=== PATIENT | male | born 1940 | race African-American/Black ===

== ENCOUNTER 2020-12-05 08:00 | Inpatient (IN) ==
[2020-12-05] MEDS ORDERED: DEXTROSE 50% 25 GM/50 ML VIAL IV PRN (11:34)
[2020-12-05] MEDS ORDERED: GLUCAGON 1 MG VIAL IM PRN (11:34)
[2020-12-05 12:27] LABS: Basophils % 0.4 % (0.0-0.8); Eosinophils # 0.2 10*3/uL (0.0-0.87); Eosinophils % 1.9 % (0.00-10.9); Hematocrit 47.4 VOL% (42.0-52.0); Hemoglobin 14.6 GM/DL (14.0-18.0); Immature Granulocytes % 0.4 %; Immature Granulocytes Absolute 0.04 #; Lymphocytes # 2.2 10*3/uL (1.4-4.0); Lymphocytes % 21.4 % (21.2-54.2); Mean Corpuscular HGB Conc 30.8 GM/DL (32-36); Mean Corpuscular Volume 86.2 FL (87-102); Mean Platelet Volume 11.5 FL (9.6-12.0); Monocytes % 6.7 % (1.7-12.7); Neutrophils % 69.2 % (38.7-73.9); Platelet Count 247 T/CUMM (130-400); Red Cell Distribution Width 15.6 % (9.3-17.3); White Blood Count 10.1 T/CUMM (4-12)
[2020-12-05] MEDS ORDERED: INFLUENZA VIRUS VACCINE 0.5 ML SYRINGE IM ONE (12:35)
[2020-12-05] MEDS ORDERED: PNEUMOCOCCAL VACCINE (13 VALENT) 0.5 ML SYRINGE IM ONE (12:36)
[2020-12-05] MEDS ORDERED: NITROGLYCERIN SL 0.4 MG TABLET SL PRN (12:41)
[2020-12-05] MEDS ORDERED: MORPHINE 2 MG/1 ML SYRINGE IV PRN (12:41)
[2020-12-05] MEDS ORDERED: CLORAZEPATE 3.75 MG TABLET PO PRN (12:41)
[2020-12-05] MEDS ORDERED: ALBUTEROL/IPRATROPIUM 3 ML NEB RESP TX PRN (12:45)
[2020-12-05 13:03] LABS: Albumin 3.9 G/DL (3.4-5.0); Bilirubin,Total 0.8 MG/DL (0.20-1.00); Calcium 9.4 MG/DL (8.5-10.1); Potassium 4.4 MMOL/L (3.5-5.1); Total Protein 8.8 G/DL (6.4-8.2)
[2020-12-05] MEDS ORDERED: DAPAGLIFLOZIN 10 MG TABLET PO SCH (13:30)
[2020-12-05 13:40] LABS: ABG Base Excess -0.4 MMOL/L (-2.5-2.5); ABG HCO3 23.9 MMOL/L (20-26); ABG Oxygen Saturation 93.6 % (95-100); ABG PCO2 38.3 MM HG (35-48); ABG PH 7.413 (7.35-7.45); ABG PO2 69.6 MM HG (80-95); ABG TCO2 25.1 MMOL/L (23-27); Allen Test Positive; Pt O2 Delivery Device Room Air
[2020-12-05] MEDS: SODIUM CHLORIDE 0.9% 1,000 ML IV SCH (14:00)
[2020-12-05] MEDS: INSULIN REGULAR 100 UNIT/ML SUBCUT SCH ×2 (16:07→20:22)
[2020-12-05] MEDS: CHLORHEXIDINE 4% SOLN 118 ML BOTTLE TOP SCH ×2 (16:08→20:21)
[2020-12-05 17:29] LABS: Microalbum Ur Quant Random 58.7 MG/L (0-20)
[2020-12-05] MEDS: PANTOPRAZOLE 40 MG TABLET PO SCH (20:22)
[2020-12-05] MEDS: CHLORHEXIDINE 0.12% ORAL RINSE 60 ML BOTTLE SWISH/SPIT SCH (20:22)
[2020-12-05] MEDS ORDERED: INSULIN GLARGINE 100 UNIT/ML SUBCUT SCH (21:00)
[2020-12-06] MEDS: CHLORHEXIDINE 4% SOLN 118 ML BOTTLE TOP SCH ×2 (04:01→11:17)
[2020-12-06] MEDS ORDERED: VANCOMYCIN INJ 1,000 MG in SODIUM CHLORIDE 0.9% 250 ML IV ONE (05:00)
[2020-12-06] MEDS ORDERED: VANCOMYCIN 500 MG VIAL ONE (05:03)
[2020-12-06] MEDS ORDERED: PAPAVERINE 60 MG/2 ML VIAL ONE (05:03)
[2020-12-06] MEDS ORDERED: VANCOMYCIN 1,000 MG VIAL ONE (05:03)
[2020-12-06] MEDS ORDERED: HEPARIN/NACL 0.9% 2 UNITS/ML 1,000 UNIT/500 ML BAG IV ONE (05:37)
[2020-12-06] MEDS ORDERED: SEVOFLURANE 1 UNIT/15 MINUTE INH ONE (05:40)
[2020-12-06] MEDS ORDERED: VECURONIUM 10 MG VIAL IV ONE ×3 (05:41→08:41)
[2020-12-06] MEDS ORDERED: CALCIUM CHLORIDE 1,000 MG/10 ML VIAL IV ONE ×3 (05:41→11:37)
[2020-12-06] MEDS ORDERED: SUFentanil 250 MCG/5 ML AMP ONE (05:41)
[2020-12-06] MEDS ORDERED: LIDOCAINE 2% 5 ML VIAL ONE ×2 (05:41→11:39)
[2020-12-06] MEDS ORDERED: ETOMIDATE 40 MG/20 ML VIAL IV ONE (05:41)
[2020-12-06] MEDS ORDERED: MIDAZOLAM 10 MG/2 ML VIAL ONE ×4 (05:41→08:42)
[2020-12-06] MEDS ORDERED: MINERAL OIL/PETROLATUM OPH OINT 3.5 GM TUBE ONE (05:42)
[2020-12-06] MEDS ORDERED: SODIUM CHLORIDE 0.9% 250 ML IV ONE (05:42)
[2020-12-06] MEDS ORDERED: AMINOCAPROIC ACID 5,000 MG/20 ML VIAL ONE (05:42)
[2020-12-06] MEDS ORDERED: PANTOPRAZOLE 40 MG TABLET PO ONE (06:00)
[2020-12-06] MEDS ORDERED: DIAZEPAM 5 MG TABLET PO ONE (06:00)
[2020-12-06 07:40] LABS: ABG Base Excess -1.5 MMOL/L (-2.5-2.5); ABG HCO3 24.8 MMOL/L (20-26); ABG Oxygen Saturation 99.5 % (95-100); ABG PH 7.331 (7.35-7.45); ABG PO2 378.7 MM HG (80-95); ABG TCO2 26.3 MMOL/L (23-27); Glucose Heart Surgery 248 MG/DL (74-106); Hemoglobin Heart Surgery 13.2 G/DL (14.0-18.0); Ionized Calcium Arterial 1.12 MMOL/L (1.21-1.46); PH Patient Temp Arterial 7.331; PO2 Patient Temp Arterial 378.7 MM HG; Patient Temperature 37 CELCIUS; Potassium Heart/CVR 4.1 MMOL/L (3.5-5.1); Sodium Heart/CVR 138 MMOL/L (135-145)
[2020-12-06 08:13] LABS: Bilirubin,Urine Negative (Negative); Blood, Urine Small mg/dL (Negative); Glucose,Urine (UA) 50 mg/dL (Negative); Ketones,Urine Negative (Negative); Mucus,Urine Occasional /LPF (Occasional); Nitrite,Urine Negative (Negative); Protein,Urine Negative; RBC,Urine 9 /HPF (0-4); Urine Appearance CLEAR (Clear); Urine Color Yellow (Yellow); Urine Specific Gravity 1.024 (1.001-1.035); Urine Urobilinogen < 2.0 EU/DL (0.2-1.0)
[2020-12-06 08:27] LABS: Hematocrit Heart Surgery 26.9 PERCENT (42-52); Hemoglobin Heart Surgery 8.7 G/DL (14.0-18.0); PCO2 Patient Temp Venous 46.2 MM HG; PH Patient Temp Venous 7.327; PO2 Patient Temp Venous 50.2 MM HG; Potassium Heart/CVR 4.4 MMOL/L (3.5-5.1); VBG Base Excess -1.8 MEQ/L (0-4); VBG HCO3 22.7 MEQ/L (24-28); VBG Oxygen Saturation 81.5 %; VBG PCO2 48.5 MMHG (41-51); VBG PH 7.313; VBG PO2 53.7 MMHG (17-40)
[2020-12-06] MEDS ORDERED: diphenhydrAMINE 50 MG/1 ML VIAL ONE (08:41)
[2020-12-06] MEDS ORDERED: AMIODARONE 150 MG/3 ML VIAL ONE (08:46)
[2020-12-06] MEDS ORDERED: SODIUM CHLORIDE 0.9% 200 ML IV ONE (08:47)
[2020-12-06 08:54] LABS: Hemoglobin Heart Surgery 9.4 G/DL (14.0-18.0); PCO2 Patient Temp Venous 33.4 MM HG; PH Patient Temp Venous 7.436; PO2 Patient Temp Venous 39.8 MM HG; Potassium Heart/CVR 3.7 MMOL/L (3.5-5.1); VBG Base Excess -1.2 MEQ/L (0-4); VBG HCO3 23.2 MEQ/L (24-28); VBG Oxygen Saturation 81.8 %; VBG PCO2 38.6 MMHG (41-51); VBG PH 7.393; VBG PO2 48.9 MMHG (17-40); VBG Total CO2 21.7 MMOL/L
[2020-12-06] MEDS ORDERED: ALBUMIN 5% 12.5 GM/250 ML VIAL IV ONE (08:56)
[2020-12-06] MEDS ORDERED: POTASSIUM CHLORIDE RIDER 20 MEQ/100 ML PREMIX IV ONE (08:57)
[2020-12-06] MEDS ORDERED: PHENYLEPHRINE DRIP 40 MG/250 ML PREMIX IV ONE (08:58)
[2020-12-06] MEDS ORDERED: FAMOTIDINE 20 MG/2 ML VIAL IV ONE (09:11)
[2020-12-06 09:26] LABS: Hematocrit Heart Surgery 30.1 PERCENT (42-52); Hemoglobin Heart Surgery 9.7 G/DL (14.0-18.0); PCO2 Patient Temp Venous 36.7 MM HG; PH Patient Temp Venous 7.391; PO2 Patient Temp Venous 45.6 MM HG; Potassium Heart/CVR 4.5 MMOL/L (3.5-5.1); VBG Base Excess -2.3 MEQ/L (0-4); VBG HCO3 22.2 MEQ/L (24-28); VBG Oxygen Saturation 76.6 %; VBG PCO2 36.7 MMHG (41-51); VBG PH 7.391; VBG PO2 45.6 MMHG (17-40); VBG Total CO2 20.4 MMOL/L
[2020-12-06 09:57] LABS: Hemoglobin Heart Surgery 10.7 G/DL (14.0-18.0); PCO2 Patient Temp Venous 34.7 MM HG; PH Patient Temp Venous 7.431; PO2 Patient Temp Venous 41.3 MM HG; Potassium Heart/CVR 4.6 MMOL/L (3.5-5.1); VBG Base Excess -1.3 MEQ/L (0-4); VBG HCO3 22.6 MEQ/L (24-28); VBG Oxygen Saturation 77.8 %; VBG PCO2 34.7 MMHG (41-51); VBG PH 7.431; VBG PO2 41.3 MMHG (17-40); VBG Total CO2 23.6 MMOL/L
[2020-12-06] MEDS ORDERED: THROMBIN TOPICAL (RECOMBINANT) 5,000 UNIT VIAL TOP ONE (10:07)
[2020-12-06] MEDS ORDERED: EPINEPHrine 1 MG/ML VIAL ONE (10:32)
[2020-12-06 10:45] LABS: Hemoglobin Heart Surgery 9.7 G/DL (14.0-18.0); PCO2 Patient Temp Venous 38.7 MM HG; PH Patient Temp Venous 7.358; PO2 Patient Temp Venous 48.4 MM HG; Potassium Heart/CVR 3.3 MMOL/L (3.5-5.1); VBG Base Excess -3.3 MEQ/L (0-4); VBG HCO3 21.3 MEQ/L (24-28); VBG Oxygen Saturation 78.1 %; VBG PCO2 38.7 MMHG (41-51); VBG PH 7.358; VBG PO2 48.4 MMHG (17-40)
[2020-12-06] MEDS ORDERED: LACTATED RINGERS 1,000 ML IV ONE ×2 (10:46→11:00)
[2020-12-06] MEDS ORDERED: PHENYLEPHRINE DRIP 20 MG/250 ML PREMIX IV ONE ×2 (10:46)
[2020-12-06] MEDS ORDERED: DOBUTamine 500 MG/250 ML PREMIX IV ONE (10:46)
[2020-12-06] MEDS ORDERED: SODIUM CHLORIDE 0.9% 1,000 ML IV ONE (10:46)
[2020-12-06] MEDS: INSULIN REGULAR 100 UNIT/ML SUBCUT SCH ×2 (11:15→11:17)
[2020-12-06] MEDS: PANTOPRAZOLE 40 MG TABLET PO SCH (11:16)
[2020-12-06] MEDS: CHLORHEXIDINE 0.12% ORAL RINSE 60 ML BOTTLE SWISH/SPIT SCH ×2 (11:16→20:29)
[2020-12-06 11:18] LABS: Hematocrit Heart Surgery 23.7 PERCENT (42-52); Hemoglobin Heart Surgery 7.6 G/DL (14.0-18.0); PCO2 Patient Temp Venous 37.5 MM HG; PH Patient Temp Venous 7.421; Potassium Heart/CVR 3.8 MMOL/L (3.5-5.1); VBG Base Excess 0.1 MEQ/L (0-4); VBG HCO3 24.2 MEQ/L (24-28); VBG Oxygen Saturation 73.2 %; VBG PCO2 37.5 MMHG (41-51); VBG PH 7.421
[2020-12-06] MEDS ORDERED: methylPREDNISolone SOD SUC 1,000 MG/8 ML VIAL ONE (11:39)
[2020-12-06] MEDS ORDERED: MAGNESIUM SULFATE 5 GM/10 ML VIAL IV ONE (11:39)
[2020-12-06] MEDS ORDERED: ALBUMIN 25% 25 GM/100 ML VIAL IV ONE (11:39)
[2020-12-06] MEDS ORDERED: DEXTROSE 5% KCL 20 MEQ 20 MEQ/1,000 ML BAG IV ONE (11:39)
[2020-12-06] MEDS ORDERED: PROTAMINE SULFATE 250 MG/25 ML VIAL IV ONE (11:40)
[2020-12-06] MEDS ORDERED: SODIUM BICARBONATE 50 MEQ/50 ML VIAL IV ONE (11:40)
[2020-12-06] MEDS ORDERED: MANNITOL 100 GM/500 ML BAG IV ONE (11:40)
[2020-12-06] MEDS ORDERED: FUROSEMIDE 20 MG/2 ML VIAL ONE (11:40)
[2020-12-06] MEDS ORDERED: HEPARIN 10,000 UNIT/10 ML VIAL ONE (11:40)
[2020-12-06] MEDS ORDERED: PROTAMINE SULFATE 50 MG/5 ML VIAL IV ONE (11:40)
[2020-12-06 11:44] LABS: ABG Base Excess -2.3 MMOL/L (-2.5-2.5); ABG HCO3 22.5 MMOL/L (20-26); ABG Oxygen Saturation 98.7 % (95-100); ABG PH 7.328 (7.35-7.45); ABG TCO2 22.1 MMOL/L (23-27); Glucose Heart Surgery 400 MG/DL (74-106); Hematocrit Heart Surgery 25.6 PERCENT (42-52); Hemoglobin Heart Surgery 8.2 G/DL (14.0-18.0); PH Patient Temp Arterial 7.328; Patient Temperature 37 CELCIUS; Potassium Heart/CVR 3.8 MMOL/L (3.5-5.1); Sodium Heart/CVR 135 MMOL/L (135-145)
[2020-12-06] MEDS ORDERED: MIDAZOLAM 2 MG/2 ML VIAL ONE ×2 (11:45)
[2020-12-06] MEDS ORDERED: MIDAZOLAM 2 MG/2 ML VIAL IV PRN (12:05)
[2020-12-06] MEDS ORDERED: MIDAZOLAM 10 MG/2 ML VIAL IV PRN (12:05)
[2020-12-06] MEDS ORDERED: ACETAMINOPHEN 650 MG SUPP RECTAL PRN (12:05)
[2020-12-06] MEDS ORDERED: CALCIUM CHLORIDE 1,000 MG/10 ML SYRINGE IV PRN (12:05)
[2020-12-06] MEDS ORDERED: MAGNESIUM SULF RIDER 4 GM/100 ML PREMIX IV PRN (12:05)
[2020-12-06] MEDS ORDERED: PHENYLEPHRINE DRIP 40 MG/250 ML PREMIX IV PRN (12:05)
[2020-12-06] MEDS ORDERED: POTASSIUM CHLORIDE RIDER 10 MEQ/100 ML PREMIX IV PRN (12:05)
[2020-12-06] MEDS ORDERED: INSULIN REGULAR 100 UNIT/ML IV ONE (12:05)
[2020-12-06] MEDS ORDERED: VECURONIUM 10 MG VIAL IV PRN ×2 (12:05)
[2020-12-06] MEDS ORDERED: DEXTROSE 50% 25 GM/50 ML VIAL IV PRN ×2 (12:05)
[2020-12-06] MEDS ORDERED: LACTATED RINGERS 250 ML IV PRN (12:05)
[2020-12-06] MEDS ORDERED: CHLORHEXIDINE 4% SOLN 118 ML BOTTLE TOP PRN (12:05)
[2020-12-06] MEDS ORDERED: NITROPRUSSIDE 100 MG in DEXTROSE 5% 250 ML IV PRN (12:05)
[2020-12-06] MEDS ORDERED: MAGNESIUM SULF RIDER 2 GM/50 ML PREMIX IV PRN (12:05)
[2020-12-06] MEDS: DOBUTamine 500 MG/250 ML PREMIX IV SCH (12:28)
[2020-12-06] MEDS: SODIUM CHLORIDE 0.45% 1,000 ML IV SCH ×2 (12:30)
[2020-12-06] MEDS ORDERED: AMIODARONE INJ 450 MG in DEXTROSE 5% 241 ML IV SCH (12:30)
[2020-12-06] MEDS ORDERED: AMIODARONE 450 MG/9 ML VIAL IV ONE (12:37)
[2020-12-06 13:10] LABS: ABG Base Excess -2.4 MMOL/L (-2.5-2.5); ABG HCO3 23.6 MMOL/L (20-26); ABG Oxygen Saturation 97.9 % (95-100); ABG PCO2 46.7 MM HG (35-48); ABG PH 7.322 (7.35-7.45); ABG PO2 127.2 MM HG (80-95); ABG TCO2 25.1 MMOL/L (23-27); Glucose Heart Surgery 384 MG/DL (74-106); Hemoglobin Heart Surgery 9.2 G/DL (14.0-18.0)
[2020-12-06 13:11] LABS: Basophils % 0.2 % (0.0-0.8); Eosinophils % 0.1 % (0.00-10.9); Hematocrit 28.1 VOL% (42.0-52.0); Hemoglobin 8.7 GM/DL (14.0-18.0); Immature Granulocytes % 1.5 %; Immature Granulocytes Absolute 0.18 #; Lymphocytes # 0.6 10*3/uL (1.4-4.0); Lymphocytes % 5.2 % (21.2-54.2); Mean Corpuscular Volume 87.3 FL (87-102); Mean Platelet Volume 11.1 FL (9.6-12.0); Monocytes % 4.2 % (1.7-12.7); Neutrophils % 88.8 % (38.7-73.9); Platelet Count 158 T/CUMM (130-400); Red Blood Count 3.22 MC/CUMM (3.8-5.5); Red Cell Distribution Width 15.4 % (9.3-17.3); White Blood Count 12.4 T/CUMM (4-12)
[2020-12-06 13:22] LABS: INR 1.1; PT Patient Result 12.4 SECS (10.5-12.0); Partial Thromboplastin Time 25.5 SECS (23.9-33.8)
[2020-12-06 13:31] LABS: Bilirubin,Total 1.4 MG/DL (0.20-1.00); Calcium 9.1 MG/DL (8.5-10.1); Osmolality,Calculated 290.8 MOS/KG (273-304); Total Protein 6.4 G/DL (6.4-8.2)
[2020-12-06 13:43] LABS: High Sensitive Troponin I* 7896.4 ng/L (0-78)
[2020-12-06 13:50] LABS: Band Neutrophils 1 % (0-10); Hypochromasia Slight; Lymphocytes 3 % (20-55); Segmented Neutrophils 92 % (50-85); Spherocytes Few; Total Cells Counted 100
[2020-12-06] MEDS: INSULIN REGULAR DRIP 100 ML IV SCH ×3 (13:50→23:20)
[2020-12-06 13:51] LABS: Microcytosis 1+; Platelet Estimate Adequate
[2020-12-06 14:34] LABS: ABG Base Excess -1.5 MMOL/L (-2.5-2.5); ABG HCO3 24.9 MMOL/L (20-26); ABG Oxygen Saturation 94.1 % (95-100); ABG PCO2 50.2 MM HG (35-48); ABG PH 7.314 (7.35-7.45); ABG PO2 79.3 MM HG (80-95); ABG TCO2 26.5 MMOL/L (23-27); Glucose Heart Surgery 390 MG/DL (74-106); Hemoglobin Heart Surgery 10.1 G/DL (14.0-18.0); Potassium Heart/CVR 4.5 MMOL/L (3.5-5.1)
[2020-12-06] MEDS: ALBUMIN 5% 12.5 GM/250 ML VIAL IV PRN ×2 (15:09→16:22)
[2020-12-06] MEDS: INSULIN REGULAR 100 UNIT/ML IV PRN ×2 (15:21→17:19)
[2020-12-06] MEDS: SODIUM CHLORIDE 0.9% 1,000 ML IV SCH (15:29)
[2020-12-06 15:38] LABS: ABG HCO3 21.9 MMOL/L (20-26); ABG Oxygen Saturation 99.1 % (95-100); ABG PCO2 43.4 MM HG (35-48); Glucose Heart Surgery 398 MG/DL (74-106); Hematocrit Heart Surgery 30.9 PERCENT (42-52)
[2020-12-06] MEDS: VANCOMYCIN INJ 1,000 MG in SODIUM CHLORIDE 0.9% 250 ML IV SCH (18:03)
[2020-12-06] MEDS ORDERED: FUROSEMIDE 40 MG/4 ML VIAL IV ONE (18:24)
[2020-12-06 18:47] LABS: ABG Base Excess -2.8 MMOL/L (-2.5-2.5); ABG HCO3 22.1 MMOL/L (20-26); ABG Oxygen Saturation 97.8 % (95-100); ABG PCO2 45.8 MM HG (35-48); ABG PH 7.317 (7.35-7.45); ABG TCO2 21.7 MMOL/L (23-27); Glucose Heart Surgery 321 MG/DL (74-106); Hematocrit Heart Surgery 29.2 PERCENT (42-52); Hemoglobin Heart Surgery 9.4 G/DL (14.0-18.0); Potassium Heart/CVR 3.7 MMOL/L (3.5-5.1)
[2020-12-06] MEDS: MORPHINE 10 MG/1 ML VIAL IV PRN (18:53)
[2020-12-06] MEDS: POTASSIUM CHLORIDE RIDER 20 MEQ/100 ML PREMIX IV PRN (18:59)
[2020-12-06] MEDS: DEXMEDETOMIDINE 200 MCG in SODIUM CHLORIDE 0.9% 48 ML IV PRN (19:31)
[2020-12-06 20:22] LABS: ABG Base Excess -0.6 MMOL/L (-2.5-2.5); ABG HCO3 23.9 MMOL/L (20-26); ABG Oxygen Saturation 98.3 % (95-100); ABG PCO2 44.7 MM HG (35-48); ABG PH 7.356 (7.35-7.45); ABG TCO2 22.9 MMOL/L (23-27); Glucose Heart Surgery 270 MG/DL (74-106); Hematocrit Heart Surgery 30.1 PERCENT (42-52); Hemoglobin Heart Surgery 9.7 G/DL (14.0-18.0); Potassium Heart/CVR 4.4 MMOL/L (3.5-5.1)
[2020-12-06] MEDS: AMIODARONE INJ 450 MG in DEXTROSE 5% 241 ML IV SCH (20:25)
[2020-12-06 20:57] LABS: CKMB % 4.6 %
[2020-12-06 20:58] LABS: High Sensitive Troponin I* 28885.4 ng/L (0-78)
[2020-12-06] MEDS ORDERED: HEPARIN 5,000 UNIT/1 ML VIAL IV ONE ×2 (21:11→21:36)
[2020-12-06 21:59] LABS: ABG Base Excess 1.9 MMOL/L (-2.5-2.5); ABG HCO3 26.1 MMOL/L (20-26); ABG Oxygen Saturation 96.4 % (95-100); ABG PCO2 43.2 MM HG (35-48); ABG PH 7.403 (7.35-7.45); ABG PO2 84.6 MM HG (80-95); ABG TCO2 24.4 MMOL/L (23-27); Glucose Heart Surgery 205 MG/DL (74-106); Hematocrit Heart Surgery 31.6 PERCENT (42-52); Hemoglobin Heart Surgery 10.2 G/DL (14.0-18.0)
[2020-12-06 23:43] LABS: ABG Base Excess 3.9 MMOL/L (-2.5-2.5); ABG HCO3 27.8 MMOL/L (20-26); ABG Oxygen Saturation 93.6 % (95-100); ABG PCO2 44.4 MM HG (35-48); ABG PH 7.421 (7.35-7.45); ABG PO2 69.3 MM HG (80-95); ABG TCO2 26.1 MMOL/L (23-27); Glucose Heart Surgery 136 MG/DL (74-106); Hematocrit Heart Surgery 31.9 PERCENT (42-52); Hemoglobin Heart Surgery 10.3 G/DL (14.0-18.0); Potassium Heart/CVR 3.8 MMOL/L (3.5-5.1)
[2020-12-07] MEDS: POTASSIUM CHLORIDE RIDER 20 MEQ/100 ML PREMIX IV PRN (00:12)
[2020-12-07] MEDS: MORPHINE 10 MG/1 ML VIAL IV PRN ×4 (01:01→22:30)
[2020-12-07] MEDS: ALBUMIN 5% 12.5 GM/250 ML VIAL IV PRN (01:52)
[2020-12-07] MEDS ORDERED: FUROSEMIDE 40 MG/4 ML VIAL IV ONE ×2 (02:58→15:46)
[2020-12-07 03:11] LABS: ABG Base Excess 3.2 MMOL/L (-2.5-2.5); ABG HCO3 27.2 MMOL/L (20-26); ABG Oxygen Saturation 97.9 % (95-100); ABG PCO2 45.1 MM HG (35-48); ABG PH 7.406 (7.35-7.45); ABG TCO2 25.9 MMOL/L (23-27); Glucose Heart Surgery 184 MG/DL (74-106); Hemoglobin Heart Surgery 9.7 G/DL (14.0-18.0); Potassium Heart/CVR 4.4 MMOL/L (3.5-5.1)
[2020-12-07 03:20] LABS: Basophils % 0.1 % (0.0-0.8); Hematocrit 29.3 VOL% (42.0-52.0); Hemoglobin 9.5 GM/DL (14.0-18.0); Immature Granulocytes % 0.3 %; Immature Granulocytes Absolute 0.04 #; Lymphocytes # 1.1 10*3/uL (1.4-4.0); Lymphocytes % 9.1 % (21.2-54.2); Mean Corpuscular HGB Conc 32.4 GM/DL (32-36); Mean Corpuscular Volume 85.4 FL (87-102); Mean Platelet Volume 11.6 FL (9.6-12.0); Monocytes % 6.7 % (1.7-12.7); Neutrophils % 83.8 % (38.7-73.9); Platelet Count 121 T/CUMM (130-400); Red Blood Count 3.43 MC/CUMM (3.8-5.5); White Blood Count 12.2 T/CUMM (4-12)
[2020-12-07 03:34] LABS: Albumin 3.7 G/DL (3.4-5.0); Bilirubin,Direct 0.24 MG/DL (0.0-0.20); Bilirubin,Total 1.2 MG/DL (0.20-1.00); Calcium 8.4 MG/DL (8.5-10.1); Osmolality,Calculated 282.5 MOS/KG (273-304); Potassium 4.5 MMOL/L (3.5-5.1); Total Protein 6.2 G/DL (6.4-8.2)
[2020-12-07 03:40] LABS: Band Neutrophils 2 % (0-10); Lymphocytes 7 % (20-55); Platelet Estimate Normal; Segmented Neutrophils 90 % (50-85); Total Cells Counted 100
[2020-12-07 03:49] LABS: CKMB % 5.3 %
[2020-12-07 03:53] LABS: High Sensitive Troponin I* 61709.8 ng/L (0-78)
[2020-12-07] MEDS: DEXMEDETOMIDINE 200 MCG in SODIUM CHLORIDE 0.9% 48 ML IV PRN (03:54)
[2020-12-07] MEDS: VANCOMYCIN INJ 1,000 MG in SODIUM CHLORIDE 0.9% 250 ML IV SCH ×2 (05:15→17:57)
[2020-12-07 09:51] LABS: ABG Base Excess 5.4 MMOL/L (-2.5-2.5); ABG HCO3 29.2 MMOL/L (20-26); ABG Oxygen Saturation 94.9 % (95-100); ABG PCO2 41.7 MM HG (35-48); ABG PO2 71.6 MM HG (80-95); ABG TCO2 27.1 MMOL/L (23-27); Glucose Heart Surgery 104 MG/DL (74-106); Hematocrit Heart Surgery 29.2 PERCENT (42-52); Hemoglobin Heart Surgery 9.4 G/DL (14.0-18.0)
[2020-12-07] MEDS: CHLORHEXIDINE 0.12% ORAL RINSE 60 ML BOTTLE SWISH/SPIT SCH ×2 (09:56→20:15)
[2020-12-07 11:32] LABS: ABG Base Excess 5.7 MMOL/L (-2.5-2.5); ABG HCO3 29.5 MMOL/L (20-26); ABG Oxygen Saturation 95.8 % (95-100); ABG PCO2 41.6 MM HG (35-48); ABG PH 7.465 (7.35-7.45); ABG TCO2 27.3 MMOL/L (23-27); Glucose Heart Surgery 92 MG/DL (74-106); Hematocrit Heart Surgery 29.4 PERCENT (42-52); Hemoglobin Heart Surgery 9.5 G/DL (14.0-18.0)
[2020-12-07] MEDS ORDERED: PANTOPRAZOLE 40 MG VIAL IV ONE (11:58)
[2020-12-07] MEDS: AMIODARONE INJ 450 MG in DEXTROSE 5% 241 ML IV SCH ×2 (13:31→14:34)
[2020-12-07] MEDS: INSULIN REGULAR DRIP 100 ML IV SCH (14:47)
[2020-12-07] MEDS ORDERED: ASPIRIN EC 81 MG TABLET PO ONE (15:00)
[2020-12-07 15:08] LABS: ABG Base Excess 4.2 MMOL/L (-2.5-2.5); ABG HCO3 28.1 MMOL/L (20-26); ABG Oxygen Saturation 96.4 % (95-100); ABG PCO2 41.3 MM HG (35-48); ABG PH 7.447 (7.35-7.45); ABG PO2 82.1 MM HG (80-95); Glucose Heart Surgery 120 MG/DL (74-106); Hematocrit Heart Surgery 30.1 PERCENT (42-52); Hemoglobin Heart Surgery 9.7 G/DL (14.0-18.0); Potassium Heart/CVR 4.1 MMOL/L (3.5-5.1)
[2020-12-07] MEDS: DOBUTamine 500 MG/250 ML PREMIX IV SCH (16:02)
[2020-12-07 16:52] LABS: CKMB % 3.8 %
[2020-12-07 16:54] LABS: High Sensitive Troponin I* 76073.9 ng/L (0-78)
[2020-12-07] MEDS: INSULIN REGULAR 100 UNIT/ML SUBCUT SCH ×2 (18:00→22:30)
[2020-12-07] MEDS: SODIUM CHLORIDE 0.45% 1,000 ML IV SCH ×2 (18:08)
[2020-12-08] MEDS: AMIODARONE INJ 450 MG in DEXTROSE 5% 241 ML IV SCH (02:10)
[2020-12-08] MEDS: INSULIN REGULAR 100 UNIT/ML SUBCUT SCH ×8 (02:10→20:32)
[2020-12-08 03:40] LABS: ABG Base Excess 2.7 MMOL/L (-2.5-2.5); ABG HCO3 27.1 MMOL/L (20-26); ABG Oxygen Saturation 88.3 % (95-100); ABG PH 7.438 (7.35-7.45); ABG PO2 57.7 MM HG (80-95); ABG TCO2 28.4 MMOL/L (23-27)
[2020-12-08 04:00] LABS: Basophils % 0.1 % (0.0-0.8); Hematocrit 30.2 VOL% (42.0-52.0); Hemoglobin 9.5 GM/DL (14.0-18.0); Immature Granulocytes % 0.4 %; Immature Granulocytes Absolute 0.06 #; Lymphocytes # 1.1 10*3/uL (1.4-4.0); Lymphocytes % 7.4 % (21.2-54.2); Mean Corpuscular HGB Conc 31.5 GM/DL (32-36); Mean Corpuscular Volume 87.5 FL (87-102); Mean Platelet Volume 12.6 FL (9.6-12.0); Monocytes % 10.5 % (1.7-12.7); Neutrophils % 81.6 % (38.7-73.9); Platelet Count 122 T/CUMM (130-400); Red Blood Count 3.45 MC/CUMM (3.8-5.5); Red Cell Distribution Width 15.4 % (9.3-17.3); White Blood Count 15.2 T/CUMM (4-12)
[2020-12-08 04:08] LABS: Albumin 3.6 G/DL (3.4-5.0); Bilirubin,Direct 0.46 MG/DL (0.0-0.20); Bilirubin,Total 1.5 MG/DL (0.20-1.00); Calcium 8.8 MG/DL (8.5-10.1); Potassium 4.6 MMOL/L (3.5-5.1); Total Protein 7.1 G/DL (6.4-8.2)
[2020-12-08 04:36] LABS: Band Neutrophils 4 % (0-10); Hypochromasia 1+; Lymphocytes 2 % (20-55); Microcytosis 1+; Segmented Neutrophils 82 % (50-85); Total Cells Counted 100
[2020-12-08 04:37] LABS: Platelet Estimate Adequate
[2020-12-08] MEDS: VANCOMYCIN INJ 1,000 MG in SODIUM CHLORIDE 0.9% 250 ML IV SCH (05:41)
[2020-12-08] MEDS: MORPHINE 10 MG/1 ML VIAL IV PRN (05:46)
[2020-12-08] MEDS ORDERED: FUROSEMIDE 40 MG/4 ML VIAL IV ONE (06:08)
[2020-12-08] MEDS ORDERED: FUROSEMIDE 40 MG/4 ML VIAL ONE (06:12)
[2020-12-08] MEDS: AMIODARONE 200 MG TABLET PO SCH ×2 (07:25→20:29)
[2020-12-08 08:13] LABS: CKMB % 2.6 %; High Sensitive Troponin I* 44726.6 ng/L (0-78)
[2020-12-08] MEDS: ASPIRIN EC 81 MG TABLET PO SCH (08:31)
[2020-12-08] MEDS: APIXABAN 5 MG TABLET PO SCH ×2 (08:31→20:29)
[2020-12-08] MEDS: CHLORHEXIDINE 0.12% ORAL RINSE 60 ML BOTTLE SWISH/SPIT SCH ×2 (08:31→20:34)
[2020-12-08] MEDS ORDERED: AMIODARONE 200 MG TABLET PO SCH (09:00)
[2020-12-08] MEDS: ONDANSETRON 4 MG/2 ML VIAL IV PRN ×2 (09:04→17:48)
[2020-12-08] MEDS: SODIUM CHLORIDE 0.45% 1,000 ML IV SCH ×4 (09:26→13:34)
[2020-12-08] MEDS: OMEPRAZOLE ODT 20 MG TABLET PER TUBE SCH ×2 (09:30→20:29)
[2020-12-08] MEDS ORDERED: oxyCODONE/ACETAMINOPHEN 5-325 MG TABLET PO PRN (10:27)
[2020-12-08] MEDS: METOPROLOL TARTRATE 25 MG TABLET PO SCH ×2 (11:04→20:29)
[2020-12-08] MEDS: ALBUTEROL/IPRATROPIUM 3 ML NEB RESP TX SCH ×2 (13:27→19:39)
[2020-12-08] MEDS: INSULIN REGULAR DRIP 100 ML IV SCH (13:34)
[2020-12-08] MEDS: DOBUTamine 500 MG/250 ML PREMIX IV SCH (13:35)
[2020-12-08] MEDS: DAPAGLIFLOZIN 10 MG TABLET PO SCH (13:39)
[2020-12-08] MEDS ORDERED: METOCLOPRAMIDE 10 MG/2 ML VIAL IV ONE (18:25)
[2020-12-08] MEDS ORDERED: OMEPRAZOLE ODT 20 MG TABLET PER TUBE ONE (18:26)
[2020-12-08] MEDS: ALUMINUM/MAGNES/SIMETH MAX STR 30 ML UDCUP PO PRN (18:37)
[2020-12-08] MEDS: ASCORBIC ACID 500 MG TABLET PO SCH (20:29)
[2020-12-08] MEDS: INSULIN GLARGINE 100 UNIT/ML SUBCUT SCH (20:33)
[2020-12-09] MEDS: ALBUTEROL/IPRATROPIUM 3 ML NEB RESP TX SCH ×4 (00:16→19:20)
[2020-12-09] MEDS: INSULIN REGULAR 100 UNIT/ML SUBCUT SCH ×6 (00:47→20:51)
[2020-12-09 06:40] LABS: Basophils % 0.1 % (0.0-0.8); Hematocrit 27.9 VOL% (42.0-52.0); Immature Granulocytes % 0.8 %; Immature Granulocytes Absolute 0.11 #; Lymphocytes # 1.2 10*3/uL (1.4-4.0); Lymphocytes % 8.8 % (21.2-54.2); Mean Corpuscular HGB Conc 32.3 GM/DL (32-36); Mean Corpuscular Volume 87.2 FL (87-102); Mean Platelet Volume 13.2 FL (9.6-12.0); Monocytes % 9.5 % (1.7-12.7); NRBC # 0.07 10*3/uL; Neutrophils % 80.8 % (38.7-73.9); Platelet Count 90 T/CUMM (130-400); Red Cell Distribution Width 15.1 % (9.3-17.3); White Blood Count 13.8 T/CUMM (4-12)
[2020-12-09 07:07] LABS: ABG Base Excess 3.1 MMOL/L (-2.5-2.5); ABG Oxygen Saturation 90.5 % (95-100); ABG PCO2 41.9 MM HG (35-48); ABG PH 7.428 (7.35-7.45); ABG PO2 66.9 MM HG (80-95); ABG TCO2 25.5 MMOL/L (23-27)
[2020-12-09 07:25] LABS: Albumin 3.5 G/DL (3.4-5.0); Bilirubin,Direct 0.9 MG/DL (0.0-0.20); Bilirubin,Total 3.2 MG/DL (0.20-1.00); Calcium 8.6 MG/DL (8.5-10.1); Potassium 4.4 MMOL/L (3.5-5.1)
[2020-12-09 07:26] LABS: Lymphocytes 15 % (20-55); Platelet Estimate Decreased; Segmented Neutrophils 78 % (50-85); Total Cells Counted 100
[2020-12-09 07:29] LABS: Anisocytosis Slight; Microcytosis 1+
[2020-12-09 07:30] LABS: Polychromasia Slight; Target Cells Few
[2020-12-09] MEDS: DAPAGLIFLOZIN 10 MG TABLET PO SCH (08:03)
[2020-12-09] MEDS: CHLORHEXIDINE 0.12% ORAL RINSE 60 ML BOTTLE SWISH/SPIT SCH ×2 (08:04→20:00)
[2020-12-09] MEDS: OMEPRAZOLE ODT 20 MG TABLET PER TUBE SCH ×2 (08:04→20:39)
[2020-12-09] MEDS: APIXABAN 5 MG TABLET PO SCH ×2 (08:04→20:39)
[2020-12-09] MEDS: METOPROLOL TARTRATE 25 MG TABLET PO SCH (08:04)
[2020-12-09] MEDS: AMIODARONE 200 MG TABLET PO SCH ×2 (08:04→20:39)
[2020-12-09] MEDS: ASPIRIN EC 81 MG TABLET PO SCH (08:04)
[2020-12-09] MEDS: ASCORBIC ACID 500 MG TABLET PO SCH ×2 (08:04→20:39)
[2020-12-09] MEDS: ALUMINUM/MAGNES/SIMETH MAX STR 30 ML UDCUP PO PRN (09:35)
[2020-12-09] MEDS ORDERED: ZALEPLON 5 MG CAPSULE PO PRN (10:16)
[2020-12-09] MEDS ORDERED: ACETAMINOPHEN 325 MG TABLET PO PRN (10:16)
[2020-12-09] MEDS ORDERED: DEXTROSE 50% 25 GM/50 ML VIAL IV PRN ×2 (10:16)
[2020-12-09] MEDS ORDERED: MAGNESIUM SULF RIDER 4 GM/100 ML PREMIX IV PRN (10:16)
[2020-12-09] MEDS ORDERED: MAGNESIUM SULF RIDER 2 GM/50 ML PREMIX IV PRN (10:16)
[2020-12-09] MEDS ORDERED: MAGNESIUM HYDROXIDE SUSP 30 ML UDCUP PO PRN (10:16)
[2020-12-09] MEDS ORDERED: POTASSIUM CHLORIDE 20 MEQ TABLET PO PRN (10:16)
[2020-12-09] MEDS ORDERED: ONDANSETRON 4 MG/2 ML VIAL IV PRN (10:16)
[2020-12-09] MEDS ORDERED: NITROGLYCERIN SL 0.4 MG TABLET SL PRN (10:16)
[2020-12-09] MEDS ORDERED: ALUMINUM/MAGNES/SIMETH MAX STR 30 ML UDCUP PO PRN (10:16)
[2020-12-09] MEDS ORDERED: SODIUM CHLOR 0.45% KCL 20 MEQ 20 MEQ/1,000 ML BAG IV SCH (10:16)
[2020-12-09] MEDS ORDERED: GLUCAGON 1 MG VIAL IM PRN ×2 (10:16)
[2020-12-09] MEDS ORDERED: METOCLOPRAMIDE 10 MG/2 ML VIAL IV ONE (11:58)
[2020-12-09] MEDS ORDERED: BISACODYL 10 MG SUPP RECTAL ONE (11:58)
[2020-12-09] MEDS: metFORMIN 850 MG TABLET PO SCH ×2 (12:34→16:17)
[2020-12-09] MEDS ORDERED: ALBUTEROL/IPRATROPIUM 3 ML NEB RESP TX ONE (17:37)
[2020-12-09] MEDS ORDERED: FUROSEMIDE 40 MG/4 ML VIAL IV ONE (17:37)
[2020-12-09 17:52] LABS: ABG Base Excess -0.7 MMOL/L (-2.5-2.5); ABG HCO3 23.7 MMOL/L (20-26); ABG Oxygen Saturation 87.1 % (95-100); ABG PCO2 40.4 MM HG (35-48); ABG PH 7.386 (7.35-7.45); ABG PO2 63.9 MM HG (80-95); ABG TCO2 22.3 MMOL/L (23-27); Allen Test Positive
[2020-12-09] MEDS: MORPHINE 2 MG/1 ML SYRINGE IV PRN ×2 (17:56→23:58)
[2020-12-09] MEDS ORDERED: DILTIAZEM 50 MG/10 ML VIAL IV ONE (19:19)
[2020-12-09] MEDS ORDERED: PHENYLEPHRINE DRIP 40 MG/250 ML PREMIX IV PRN (19:21)
[2020-12-09] MEDS: DILTIAZEM INJ 100 MG in SODIUM CHLORIDE 0.9% 100 ML IV SCH (20:06)
[2020-12-09] MEDS: INSULIN GLARGINE 100 UNIT/ML SUBCUT SCH (20:51)
[2020-12-09] MEDS ORDERED: AMIODARONE INJ 100 MG in DEXTROSE 5% 100 ML IV ONE (23:20)
[2020-12-10] MEDS: INSULIN REGULAR 100 UNIT/ML SUBCUT SCH ×6 (00:32→20:48)
[2020-12-10] MEDS: ALBUTEROL/IPRATROPIUM 3 ML NEB RESP TX SCH ×4 (00:38→19:33)
[2020-12-10 04:14] LABS: Basophils % 0.1 % (0.0-0.8); Hematocrit 26.7 VOL% (42.0-52.0); Hemoglobin 8.5 GM/DL (14.0-18.0); Immature Granulocytes % 2.9 %; Immature Granulocytes Absolute 0.38 #; Lymphocytes # 1.4 10*3/uL (1.4-4.0); Lymphocytes % 10.7 % (21.2-54.2); Mean Corpuscular HGB Conc 31.8 GM/DL (32-36); Mean Corpuscular Volume 88.1 FL (87-102); Mean Platelet Volume 12.2 FL (9.6-12.0); Monocytes % 9.3 % (1.7-12.7); NRBC # 0.89 10*3/uL; Red Blood Count 3.03 MC/CUMM (3.8-5.5); White Blood Count 13.1 T/CUMM (4-12)
[2020-12-10 04:16] LABS: Platelet Count 51 T/CUMM (130-400)
[2020-12-10 04:37] LABS: Band Neutrophils 5 % (0-10); Lymphocytes 14 % (20-55); Myelocytes 2 %; Nucleated Red Blood Cells 16 (0-5); Segmented Neutrophils 71 % (50-85); Total Cells Counted 100
[2020-12-10 04:38] LABS: Anisocytosis 2+; Platelet Estimate Decreased; Polychromasia Slight
[2020-12-10 04:43] LABS: Albumin 3.5 G/DL (3.4-5.0); Bilirubin,Direct 0.95 MG/DL (0.0-0.20); Bilirubin,Indirect 1.6 MG/DL (0.0-1.0); Bilirubin,Total 2.5 MG/DL (0.20-1.00); CKMB % 0.5 %; Calcium 8.5 MG/DL (8.5-10.1); Osmolality,Calculated 288.1 MOS/KG (273-304); Potassium 4.4 MMOL/L (3.5-5.1)
[2020-12-10 05:03] LABS: High Sensitive Troponin I* 6772.4 ng/L (0-78)
[2020-12-10] MEDS ORDERED: FUROSEMIDE 40 MG/4 ML VIAL IV ONE (06:00)
[2020-12-10 06:10] LABS: ABG HCO3 27.9 MMOL/L (20-26); ABG Oxygen Saturation 92.8 % (95-100); ABG PH 7.432 (7.35-7.45); ABG PO2 76.3 MM HG (80-95); ABG TCO2 26.4 MMOL/L (23-27)
[2020-12-10] MEDS ORDERED: ASPIRIN EC 325 MG TABLET PO SCH (09:00)
[2020-12-10] MEDS ORDERED: DOCUSATE SODIUM 100 MG CAPSULE PO SCH (09:00)
[2020-12-10] MEDS: GLIMEPIRIDE 2 MG TABLET PO SCH (09:00)
[2020-12-10] MEDS: metFORMIN 850 MG TABLET PO SCH ×3 (09:00→16:39)
[2020-12-10] MEDS ORDERED: FERROUS SULFATE 325 MG TABLET PO SCH (09:00)
[2020-12-10] MEDS: POLYETHYLENE GLYCOL POWDER 17 GM PACK PO SCH ×4 (09:13→22:27)
[2020-12-10] MEDS: OMEPRAZOLE ODT 20 MG TABLET PER TUBE SCH ×2 (09:14→20:43)
[2020-12-10] MEDS: ASCORBIC ACID 500 MG TABLET PO SCH ×2 (09:14→20:45)
[2020-12-10] MEDS: FINASTERIDE 5 MG TABLET PO SCH (09:18)
[2020-12-10] MEDS: DAPAGLIFLOZIN 10 MG TABLET PO SCH (09:18)
[2020-12-10] MEDS: ISOSORBIDE MONONITRATE 30 MG TABLET PO SCH (09:18)
[2020-12-10] MEDS: CHLORHEXIDINE 0.12% ORAL RINSE 60 ML BOTTLE SWISH/SPIT SCH ×2 (09:19→21:03)
[2020-12-10] MEDS: DIGOXIN 0.125 MG TABLET PO SCH (12:35)
[2020-12-10] MEDS: DILTIAZEM INJ 100 MG in SODIUM CHLORIDE 0.9% 100 ML IV SCH (16:39)
[2020-12-10] MEDS: ALBUTEROL/IPRATROPIUM 3 ML NEB RESP TX PRN ×2 (17:10→23:05)
[2020-12-10] MEDS: MORPHINE 2 MG/1 ML SYRINGE IV PRN (20:46)
[2020-12-10] MEDS: INSULIN GLARGINE 100 UNIT/ML SUBCUT SCH (20:48)
[2020-12-10] MEDS ORDERED: ATORVASTATIN 80 MG TABLET PO SCH (21:00)
[2020-12-11] MEDS: INSULIN REGULAR 100 UNIT/ML SUBCUT SCH ×6 (00:49→20:14)
[2020-12-11] MEDS: ALBUTEROL/IPRATROPIUM 3 ML NEB RESP TX SCH (01:15)
[2020-12-11 02:30] LABS: Basophils % 0.2 % (0.0-0.8); Hematocrit 25.6 VOL% (42.0-52.0); Hemoglobin 7.9 GM/DL (14.0-18.0); Immature Granulocytes % 8.2 %; Immature Granulocytes Absolute 1.36 #; Lymphocytes # 2.5 10*3/uL (1.4-4.0); Lymphocytes % 15.1 % (21.2-54.2); Mean Corpuscular HGB Conc 30.9 GM/DL (32-36); Mean Corpuscular Volume 89.8 FL (87-102); Mean Platelet Volume 12.5 FL (9.6-12.0); Monocytes % 8.3 % (1.7-12.7); NRBC # 4.33 10*3/uL; Neutrophils % 68.2 % (38.7-73.9); Platelet Count 53 T/CUMM (130-400); Red Blood Count 2.85 MC/CUMM (3.8-5.5); Red Cell Distribution Width 15.3 % (9.3-17.3); White Blood Count 16.6 T/CUMM (4-12)
[2020-12-11 02:56] LABS: Band Neutrophils 2 % (0-10); Hypochromasia 1+; Lymphocytes 10 % (20-55); Metamyelocytes 1 %; Nucleated Red Blood Cells 25 (0-5); Segmented Neutrophils 73 % (50-85); Total Cells Counted 100
[2020-12-11 02:57] LABS: Anisocytosis 1+; Microcytosis 1+; Polychromasia Slight
[2020-12-11 02:58] LABS: Ovalocytes Slight; Platelet Estimate Decreased
[2020-12-11 03:06] LABS: Albumin 3.3 G/DL (3.4-5.0); Bilirubin,Direct 0.92 MG/DL (0.0-0.20); Bilirubin,Indirect 1.5 MG/DL (0.0-1.0); Bilirubin,Total 2.4 MG/DL (0.20-1.00); CKMB % 0.4 %; Calcium 8.3 MG/DL (8.5-10.1); High Sensitive Troponin I* 5938.1 ng/L (0-78); Osmolality,Calculated 295.5 MOS/KG (273-304); Potassium 4.9 MMOL/L (3.5-5.1); Total Protein 6.7 G/DL (6.4-8.2)
[2020-12-11 05:13] LABS: ABG Base Excess 4.7 MMOL/L (-2.5-2.5); ABG HCO3 29.2 MMOL/L (20-26); ABG Oxygen Saturation 94.2 % (95-100); ABG PCO2 43.4 MM HG (35-48); ABG PH 7.446 (7.35-7.45); ABG PO2 77.9 MM HG (80-95); ABG TCO2 30.5 MMOL/L (23-27); Allen Test Positive; Pt O2 Delivery Device Venturi Mask
[2020-12-11] MEDS: DILTIAZEM INJ 100 MG in SODIUM CHLORIDE 0.9% 100 ML IV SCH (06:12)
[2020-12-11] MEDS ORDERED: DEXTROSE 50% 25 GM/50 ML VIAL IV PRN ×2 (06:25)
[2020-12-11] MEDS ORDERED: GLUCAGON 1 MG VIAL IM PRN ×2 (06:25)
[2020-12-11] MEDS ORDERED: MAGNESIUM HYDROXIDE SUSP 30 ML UDCUP PO PRN (06:25)
[2020-12-11] MEDS ORDERED: ALUMINUM/MAGNES/SIMETH MAX STR 30 ML UDCUP PO PRN (06:25)
[2020-12-11] MEDS ORDERED: POTASSIUM CHLORIDE 20 MEQ TABLET PO PRN (06:25)
[2020-12-11] MEDS ORDERED: ONDANSETRON 4 MG/2 ML VIAL IV PRN (06:25)
[2020-12-11] MEDS ORDERED: MAGNESIUM SULF RIDER 4 GM/100 ML PREMIX IV PRN (06:25)
[2020-12-11] MEDS ORDERED: MAGNESIUM SULF RIDER 2 GM/50 ML PREMIX IV PRN (06:25)
[2020-12-11] MEDS ORDERED: SODIUM CHLOR 0.45% KCL 20 MEQ 20 MEQ/1,000 ML BAG IV SCH (06:30)
[2020-12-11] MEDS: POLYETHYLENE GLYCOL POWDER 17 GM PACK PO SCH ×2 (09:00→20:18)
[2020-12-11] MEDS ORDERED: CHLORHEXIDINE 0.12% ORAL RINSE 60 ML BOTTLE SWISH/SPIT SCH (09:00)
[2020-12-11] MEDS ORDERED: ASPIRIN EC 325 MG TABLET PO SCH (09:00)
[2020-12-11] MEDS: OMEPRAZOLE ODT 20 MG TABLET PER TUBE SCH ×2 (09:05→20:16)
[2020-12-11] MEDS: metFORMIN 850 MG TABLET PO SCH (09:05)
[2020-12-11] MEDS: DAPAGLIFLOZIN 10 MG TABLET PO SCH (09:05)
[2020-12-11] MEDS: FINASTERIDE 5 MG TABLET PO SCH (09:05)
[2020-12-11] MEDS: FERROUS SULFATE 325 MG TABLET PO SCH (09:05)
[2020-12-11] MEDS: ISOSORBIDE MONONITRATE 30 MG TABLET PO SCH (09:05)
[2020-12-11] MEDS: DOCUSATE SODIUM 100 MG CAPSULE PO SCH (09:05)
[2020-12-11] MEDS: GLIMEPIRIDE 2 MG TABLET PO SCH (09:05)
[2020-12-11] MEDS: APIXABAN 2.5 MG TABLET PO SCH ×2 (09:05→20:15)
[2020-12-11] MEDS: ASCORBIC ACID 500 MG TABLET PO SCH ×2 (09:05→20:16)
[2020-12-11] MEDS: DILTIAZEM 30 MG TABLET PO SCH ×4 (09:05→20:15)
[2020-12-11] MEDS: ASPIRIN 325 MG TABLET NG SCH (09:30)
[2020-12-11] MEDS: DIGOXIN 0.125 MG TABLET PO SCH (12:55)
[2020-12-11 13:38] LABS: Bacteria,Urine Occasional /HPF (Few); Bilirubin,Urine Negative (Negative); Blood, Urine Moderate mg/dL (Negative); Glucose,Urine (UA) >=500 mg/dL (Negative); Ketones,Urine Negative (Negative); Mucus,Urine Occasional /LPF (Occasional); Nitrite,Urine Negative (Negative); Protein,Urine Negative; RBC,Urine 10 /HPF (0-4); Sperm,Urine Occasional /HPF (Negative); Squamous Epithelial Cell,Urine Occasional /HPF (0-10); Urine Appearance Slightly Hazy (Clear); Urine Color Yellow (Yellow); Urine Urobilinogen < 2.0 EU/DL (0.2-1.0)
[2020-12-11] MEDS: oxyCODONE/ACETAMINOPHEN 5-325 MG TABLET PO PRN (16:10)
[2020-12-11] MEDS: INSULIN GLARGINE 100 UNIT/ML SUBCUT SCH (20:14)
[2020-12-11] MEDS: ZALEPLON 5 MG CAPSULE PO PRN (20:15)
[2020-12-12] MEDS: INSULIN REGULAR 100 UNIT/ML SUBCUT SCH ×6 (00:30→20:19)
[2020-12-12 05:36] LABS: Basophils # 0.2 10*3/uL (0.0-0.2); Basophils % 0.7 % (0.0-0.8); Hematocrit 25.9 VOL% (42.0-52.0); Immature Granulocytes % 13.7 %; Immature Granulocytes Absolute 3.19 #; Lymphocytes # 4.1 10*3/uL (1.4-4.0); Lymphocytes % 17.5 % (21.2-54.2); Mean Corpuscular HGB Conc 30.9 GM/DL (32-36); Mean Corpuscular Volume 92.2 FL (87-102); Mean Platelet Volume 12.5 FL (9.6-12.0); Monocytes % 6.6 % (1.7-12.7); NRBC # 8.78 10*3/uL; Neutrophils % 61.5 % (38.7-73.9); Platelet Count 76 T/CUMM (130-400); Red Blood Count 2.81 MC/CUMM (3.8-5.5); Red Cell Distribution Width 15.5 % (9.3-17.3); White Blood Count 23.3 T/CUMM (4-12)
[2020-12-12 06:09] LABS: Band Neutrophils 2 % (0-10); Hypochromasia 1+; Lymphocytes 20 % (20-55); Microcytosis 1+; Nucleated Red Blood Cells 41 (0-5); Platelet Estimate Decreased; Segmented Neutrophils 71 % (50-85); Total Cells Counted 100
[2020-12-12 06:15] LABS: Calcium 8.5 MG/DL (8.5-10.1); Osmolality,Calculated 288.8 MOS/KG (273-304); Potassium 5.2 MMOL/L (3.5-5.1)
[2020-12-12 06:16] LABS: Albumin 3.3 G/DL (3.4-5.0); Bilirubin,Total 2.7 MG/DL (0.20-1.00); Calcium 8.8 MG/DL (8.5-10.1); Osmolality,Calculated 290.8 MOS/KG (273-304); Potassium 5.2 MMOL/L (3.5-5.1); Total Protein 6.8 G/DL (6.4-8.2)
[2020-12-12 06:18] LABS: Alanine Aminotransferase 2136 U/L (16-61); Albumin 3.4 G/DL (3.4-5.0); Alkaline Phosphatase 467 U/L (45-117); Aspartate Amino Transferase 1020 U/L (0-37); Bilirubin,Indirect 1.9 MG/DL (0.0-1.0); Total Protein 6.4 G/DL (6.4-8.2)
[2020-12-12] MEDS: POLYETHYLENE GLYCOL POWDER 17 GM PACK PO SCH ×2 (09:00→20:34)
[2020-12-12] MEDS: DOCUSATE SODIUM 100 MG CAPSULE PO SCH (09:15)
[2020-12-12] MEDS: FERROUS SULFATE 325 MG TABLET PO SCH (09:15)
[2020-12-12] MEDS: APIXABAN 2.5 MG TABLET PO SCH ×2 (09:15→20:16)
[2020-12-12] MEDS: ISOSORBIDE MONONITRATE 30 MG TABLET PO SCH (09:15)
[2020-12-12] MEDS: OMEPRAZOLE ODT 20 MG TABLET PER TUBE SCH ×2 (09:15→20:16)
[2020-12-12] MEDS: ASPIRIN 325 MG TABLET NG SCH (09:15)
[2020-12-12] MEDS: ASCORBIC ACID 500 MG TABLET PO SCH ×2 (09:15→20:16)
[2020-12-12] MEDS: GLIMEPIRIDE 2 MG TABLET PO SCH (09:15)
[2020-12-12] MEDS: DAPAGLIFLOZIN 10 MG TABLET PO SCH (09:15)
[2020-12-12] MEDS: FINASTERIDE 5 MG TABLET PO SCH (09:15)
[2020-12-12] MEDS: DILTIAZEM 30 MG TABLET PO SCH ×4 (09:15→20:16)
[2020-12-12] MEDS ORDERED: SODIUM CHLORIDE 0.9% 1,000 ML IV SCH (10:30)
[2020-12-12] MEDS: DIGOXIN 0.125 MG TABLET PO SCH (12:45)
[2020-12-12] MEDS: oxyCODONE/ACETAMINOPHEN 5-325 MG TABLET PO PRN (12:50)
[2020-12-12] MEDS: ZALEPLON 5 MG CAPSULE PO PRN (20:16)
[2020-12-12] MEDS: INSULIN GLARGINE 100 UNIT/ML SUBCUT SCH (20:19)
[2020-12-13 04:07] LABS: Basophils # 0.1 10*3/uL (0.0-0.2); Basophils % 0.5 % (0.0-0.8); Eosinophils % 0.2 % (0.00-10.9); Hematocrit 24.1 VOL% (42.0-52.0); Hemoglobin 7.3 GM/DL (14.0-18.0); Immature Granulocytes % 15.7 %; Immature Granulocytes Absolute 4.06 #; Lymphocytes # 5.7 10*3/uL (1.4-4.0); Lymphocytes % 21.8 % (21.2-54.2); Mean Corpuscular HGB Conc 30.3 GM/DL (32-36); Mean Corpuscular Volume 93.4 FL (87-102); Monocytes % 5.9 % (1.7-12.7); NRBC # 9.73 10*3/uL; Neutrophils % 55.9 % (38.7-73.9); Platelet Count 110 T/CUMM (130-400); Red Blood Count 2.58 MC/CUMM (3.8-5.5); Red Cell Distribution Width 15.8 % (9.3-17.3); White Blood Count 25.9 T/CUMM (4-12)
[2020-12-13 04:27] LABS: Albumin 3.2 G/DL (3.4-5.0); Bilirubin,Total 2.5 MG/DL (0.20-1.00); Calcium 8.7 MG/DL (8.5-10.1); Potassium 4.8 MMOL/L (3.5-5.1); Total Protein 6.5 G/DL (6.4-8.2)
[2020-12-13 04:30] LABS: Alanine Aminotransferase 1607 U/L (16-61); Albumin 3.2 G/DL (3.4-5.0); Alkaline Phosphatase 417 U/L (45-117); Aspartate Amino Transferase 673 U/L (0-37); Bilirubin,Indirect 1.3 MG/DL (0.0-1.0); Total Protein 6.2 G/DL (6.4-8.2)
[2020-12-13 04:44] LABS: Band Neutrophils 4 % (0-10); Hypochromasia 1+; Lymphocytes 21 % (20-55); Microcytosis 1+; Nucleated Red Blood Cells 48 (0-5); Platelet Estimate Decreased; Segmented Neutrophils 68 % (50-85); Total Cells Counted 100
[2020-12-13] MEDS ORDERED: SODIUM CHLORIDE 0.9% 1,000 ML IV PRN (06:45)
[2020-12-13] MEDS: ASCORBIC ACID 500 MG TABLET PO SCH ×2 (08:34→20:51)
[2020-12-13] MEDS: FERROUS SULFATE 325 MG TABLET PO SCH (08:34)
[2020-12-13] MEDS: ISOSORBIDE MONONITRATE 30 MG TABLET PO SCH (08:35)
[2020-12-13] MEDS: OMEPRAZOLE ODT 20 MG TABLET PER TUBE SCH ×2 (08:35→20:51)
[2020-12-13] MEDS: DOCUSATE SODIUM 100 MG CAPSULE PO SCH (08:35)
[2020-12-13] MEDS: GLIMEPIRIDE 2 MG TABLET PO SCH (08:36)
[2020-12-13] MEDS: FINASTERIDE 5 MG TABLET PO SCH (08:36)
[2020-12-13] MEDS: APIXABAN 2.5 MG TABLET PO SCH ×2 (08:36→20:51)
[2020-12-13] MEDS: DILTIAZEM 30 MG TABLET PO SCH ×3 (08:37→20:52)
[2020-12-13] MEDS: ASPIRIN 325 MG TABLET NG SCH (08:37)
[2020-12-13] MEDS: DAPAGLIFLOZIN 10 MG TABLET PO SCH (08:38)
[2020-12-13] MEDS: INSULIN REGULAR 100 UNIT/ML SUBCUT SCH ×4 (08:39→20:52)
[2020-12-13] MEDS: POLYETHYLENE GLYCOL POWDER 17 GM PACK PO SCH ×2 (09:01→20:53)
[2020-12-13] MEDS: DIGOXIN 0.125 MG TABLET PO SCH (12:17)
[2020-12-13] MEDS: INSULIN GLARGINE 100 UNIT/ML SUBCUT SCH (20:53)
[2020-12-14 05:57] LABS: Basophils # 0.1 10*3/uL (0.0-0.2); Basophils % 0.4 % (0.0-0.8); Eosinophils % 0.2 % (0.00-10.9); Hemoglobin 9.5 GM/DL (14.0-18.0); Immature Granulocytes % 12.4 %; Immature Granulocytes Absolute 2.68 #; Lymphocytes % 18.5 % (21.2-54.2); Mean Corpuscular HGB Conc 31.7 GM/DL (32-36); Mean Corpuscular Volume 90.1 FL (87-102); Mean Platelet Volume 11.7 FL (9.6-12.0); Monocytes % 6.2 % (1.7-12.7); NRBC # 6.31 10*3/uL; Neutrophils % 62.3 % (38.7-73.9); Platelet Count 122 T/CUMM (130-400); Red Blood Count 3.33 MC/CUMM (3.8-5.5); Red Cell Distribution Width 15.5 % (9.3-17.3); White Blood Count 21.6 T/CUMM (4-12)
[2020-12-14 06:18] LABS: Band Neutrophils 3 % (0-10); Hypochromasia 1+; Lymphocytes 14 % (20-55); Metamyelocytes 1 %; Nucleated Red Blood Cells 35 (0-5); Polychromasia Slight; Segmented Neutrophils 74 % (50-85); Total Cells Counted 100
[2020-12-14 06:19] LABS: Microcytosis 1+; Platelet Estimate Adequate
[2020-12-14 06:29] LABS: Calcium 8.7 MG/DL (8.5-10.1); Osmolality,Calculated 276.8 MOS/KG (273-304); Potassium 4.5 MMOL/L (3.5-5.1)
[2020-12-14 06:30] LABS: Albumin 2.9 G/DL (3.4-5.0); Bilirubin,Total 2.3 MG/DL (0.20-1.00); Calcium 8.7 MG/DL (8.5-10.1); Osmolality,Calculated 275.8 MOS/KG (273-304); Potassium 4.4 MMOL/L (3.5-5.1); Total Protein 6.6 G/DL (6.4-8.2)
[2020-12-14] MEDS: FERROUS SULFATE 325 MG TABLET PO SCH (10:02)
[2020-12-14] MEDS: OMEPRAZOLE ODT 20 MG TABLET PER TUBE SCH ×2 (10:02→20:55)
[2020-12-14] MEDS: GLIMEPIRIDE 2 MG TABLET PO SCH (10:02)
[2020-12-14] MEDS: DAPAGLIFLOZIN 10 MG TABLET PO SCH (10:02)
[2020-12-14] MEDS: ASCORBIC ACID 500 MG TABLET PO SCH ×2 (10:03→20:55)
[2020-12-14] MEDS: metFORMIN 500 MG TABLET PO SCH ×2 (10:03→17:04)
[2020-12-14] MEDS: ASPIRIN 325 MG TABLET NG SCH (10:03)
[2020-12-14] MEDS: DOCUSATE SODIUM 100 MG CAPSULE PO SCH (10:03)
[2020-12-14] MEDS: DILTIAZEM 30 MG TABLET PO SCH ×3 (10:03→20:56)
[2020-12-14] MEDS: FINASTERIDE 5 MG TABLET PO SCH (10:03)
[2020-12-14] MEDS: APIXABAN 2.5 MG TABLET PO SCH ×2 (10:03→20:55)
[2020-12-14] MEDS: ISOSORBIDE MONONITRATE 30 MG TABLET PO SCH (10:03)
[2020-12-14] MEDS: POLYETHYLENE GLYCOL POWDER 17 GM PACK PO SCH ×2 (10:04→20:56)
[2020-12-14] MEDS: INSULIN REGULAR 100 UNIT/ML SUBCUT SCH ×4 (10:04→20:57)
[2020-12-14] MEDS ORDERED: FUROSEMIDE 40 MG/4 ML VIAL IV ONE (10:38)
[2020-12-14] MEDS: ALBUTEROL/IPRATROPIUM 3 ML NEB RESP TX PRN (10:46)
[2020-12-14] MEDS: ALBUTEROL/IPRATROPIUM 3 ML NEB RESP TX SCH ×2 (12:39→20:16)
[2020-12-14] MEDS: DIGOXIN 0.125 MG TABLET PO SCH (13:15)
[2020-12-14] MEDS: INSULIN GLARGINE 100 UNIT/ML SUBCUT SCH (20:55)
[2020-12-15] MEDS: ALBUTEROL/IPRATROPIUM 3 ML NEB RESP TX SCH ×4 (01:24→19:40)
[2020-12-15 05:43] LABS: Basophils % 0.2 % (0.0-0.8); Eosinophils % 0.1 % (0.00-10.9); Hematocrit 32.1 VOL% (42.0-52.0); Immature Granulocytes % 4.5 %; Immature Granulocytes Absolute 0.85 #; Lymphocytes # 2.1 10*3/uL (1.4-4.0); Lymphocytes % 10.9 % (21.2-54.2); Mean Corpuscular HGB Conc 31.2 GM/DL (32-36); Mean Platelet Volume 11.4 FL (9.6-12.0); NRBC # 1.76 10*3/uL; Neutrophils % 79.3 % (38.7-73.9); Platelet Count 115 T/CUMM (130-400); Red Blood Count 3.49 MC/CUMM (3.8-5.5); White Blood Count 19.1 T/CUMM (4-12)
[2020-12-15 06:10] LABS: Calcium 8.8 MG/DL (8.5-10.1)
[2020-12-15 06:15] LABS: Hypochromasia 1+; Lymphocytes 15 % (20-55); Microcytosis 1+; Nucleated Red Blood Cells 8 (0-5); Platelet Estimate Decreased; Segmented Neutrophils 79 % (50-85); Total Cells Counted 100
[2020-12-15 06:18] LABS: Alanine Aminotransferase 823 U/L (16-61); Albumin 2.9 G/DL (3.4-5.0); Alkaline Phosphatase 294 U/L (45-117); Aspartate Amino Transferase 222 U/L (0-37); Bilirubin,Indirect 1.4 MG/DL (0.0-1.0); Blood Urea Nitrogen 21 MG/DL (7-18); Calcium 8.7 MG/DL (8.5-10.1); Carbon Dioxide 30 MMOL/L (21-32); Estimated Glom Filtration Rate 85 ML/MIN; Glucose 111 MG/DL (74-106); Sodium 136 MMOL/L (136-145); Total Protein 6.9 G/DL (6.4-8.2)
[2020-12-15] MEDS: INSULIN REGULAR 100 UNIT/ML SUBCUT SCH ×4 (08:04→20:36)
[2020-12-15] MEDS: OMEPRAZOLE ODT 20 MG TABLET PER TUBE SCH ×2 (09:34→20:35)
[2020-12-15] MEDS: ASPIRIN 325 MG TABLET NG SCH (09:34)
[2020-12-15] MEDS: FINASTERIDE 5 MG TABLET PO SCH (09:34)
[2020-12-15] MEDS: ASCORBIC ACID 500 MG TABLET PO SCH ×2 (09:34→20:35)
[2020-12-15] MEDS: metFORMIN 500 MG TABLET PO SCH ×2 (09:34→17:27)
[2020-12-15] MEDS: POLYETHYLENE GLYCOL POWDER 17 GM PACK PO SCH ×2 (09:34→20:36)
[2020-12-15] MEDS: ISOSORBIDE MONONITRATE 30 MG TABLET PO SCH (09:35)
[2020-12-15] MEDS: APIXABAN 2.5 MG TABLET PO SCH (09:35)
[2020-12-15] MEDS: FUROSEMIDE 20 MG TABLET PO SCH (09:35)
[2020-12-15] MEDS: FERROUS SULFATE 325 MG TABLET PO SCH (09:35)
[2020-12-15] MEDS: DAPAGLIFLOZIN 10 MG TABLET PO SCH (09:35)
[2020-12-15] MEDS: DOCUSATE SODIUM 100 MG CAPSULE PO SCH (09:36)
[2020-12-15] MEDS: GLIMEPIRIDE 2 MG TABLET PO SCH (09:36)
[2020-12-15] MEDS: DILTIAZEM 30 MG TABLET PO SCH ×3 (09:38→20:35)
[2020-12-15] MEDS ORDERED: DIGOXIN 0.5 MG/2 ML AMP IV ONE (12:15)
[2020-12-15] MEDS ORDERED: SODIUM CHLORIDE 0.45% 1,000 ML IV SCH (12:30)
[2020-12-15] MEDS: DIGOXIN 0.125 MG TABLET PO SCH (12:47)
[2020-12-15] MEDS: APIXABAN 5 MG TABLET PO SCH (20:35)
[2020-12-15] MEDS: INSULIN GLARGINE 100 UNIT/ML SUBCUT SCH (20:36)
[2020-12-16] MEDS: ALBUTEROL/IPRATROPIUM 3 ML NEB RESP TX SCH ×4 (01:20→19:30)
[2020-12-16 06:00] LABS: Basophils % 0.1 % (0.0-0.8); Eosinophils % 0.1 % (0.00-10.9); Hemoglobin 8.7 GM/DL (14.0-18.0); Immature Granulocytes % 1.2 %; Lymphocytes # 1.5 10*3/uL (1.4-4.0); Mean Corpuscular Volume 95.1 FL (87-102); Mean Platelet Volume 11.5 FL (9.6-12.0); Monocytes % 4.2 % (1.7-12.7); NRBC # 0.41 10*3/uL; Neutrophils % 85.4 % (38.7-73.9); Platelet Count 138 T/CUMM (130-400); Red Blood Count 3.05 MC/CUMM (3.8-5.5); Red Cell Distribution Width 18.2 % (9.3-17.3); White Blood Count 16.6 T/CUMM (4-12)
[2020-12-16 06:21] LABS: Alanine Aminotransferase 553 U/L (16-61); Albumin 2.5 G/DL (3.4-5.0); Alkaline Phosphatase 226 U/L (45-117); Aspartate Amino Transferase 109 U/L (0-37); Bilirubin,Indirect 0.7 MG/DL (0.0-1.0); Blood Urea Nitrogen 18 MG/DL (7-18); Calcium 8.4 MG/DL (8.5-10.1); Carbon Dioxide 32 MMOL/L (21-32); Estimated Glom Filtration Rate 95 ML/MIN; Glucose 81 MG/DL (74-106); Osmolality,Calculated 275.7 MOS/KG (273-304); Potassium 4.4 MMOL/L (3.5-5.1); Sodium 138 MMOL/L (136-145); Total Protein 6.4 G/DL (6.4-8.2)
[2020-12-16] MEDS ORDERED: DIGOXIN 0.5 MG/2 ML AMP IV ONE (06:47)
[2020-12-16] MEDS: FINASTERIDE 5 MG TABLET PO SCH (09:00)
[2020-12-16] MEDS ORDERED: SODIUM CHLORIDE 0.45% 1,000 ML IV SCH (09:00)
[2020-12-16] MEDS: ISOSORBIDE MONONITRATE 30 MG TABLET PO SCH (09:00)
[2020-12-16] MEDS: ASCORBIC ACID 500 MG TABLET PO SCH ×2 (09:01→20:51)
[2020-12-16] MEDS: GLIMEPIRIDE 2 MG TABLET PO SCH (09:01)
[2020-12-16] MEDS: FUROSEMIDE 20 MG TABLET PO SCH (09:01)
[2020-12-16] MEDS: ASPIRIN EC 81 MG TABLET PO SCH (09:02)
[2020-12-16] MEDS: OMEPRAZOLE ODT 20 MG TABLET PER TUBE SCH ×2 (09:02→20:51)
[2020-12-16] MEDS: DILTIAZEM 30 MG TABLET PO SCH ×3 (09:02→20:51)
[2020-12-16] MEDS: metFORMIN 500 MG TABLET PO SCH ×2 (09:02→17:11)
[2020-12-16] MEDS: APIXABAN 5 MG TABLET PO SCH ×2 (09:02→20:51)
[2020-12-16] MEDS: DOCUSATE SODIUM 100 MG CAPSULE PO SCH (09:03)
[2020-12-16] MEDS: POLYETHYLENE GLYCOL POWDER 17 GM PACK PO SCH ×2 (09:04→21:30)
[2020-12-16] MEDS: FERROUS SULFATE 325 MG TABLET PO SCH (09:04)
[2020-12-16] MEDS: INSULIN REGULAR 100 UNIT/ML SUBCUT SCH ×4 (09:16→20:52)
[2020-12-16] MEDS: DIGOXIN 0.125 MG TABLET PO SCH (13:03)
[2020-12-16] MEDS: INSULIN GLARGINE 100 UNIT/ML SUBCUT SCH (20:52)
[2020-12-17] MEDS: ALBUTEROL/IPRATROPIUM 3 ML NEB RESP TX SCH ×4 (01:24→19:50)
[2020-12-17 05:07] LABS: Basophils % 0.1 % (0.0-0.8); Eosinophils % 0.1 % (0.00-10.9); Hematocrit 28.5 VOL% (42.0-52.0); Hemoglobin 8.7 GM/DL (14.0-18.0); Immature Granulocytes % 1.2 %; Immature Granulocytes Absolute 0.19 #; Lymphocytes # 1.2 10*3/uL (1.4-4.0); Lymphocytes % 7.4 % (21.2-54.2); Mean Corpuscular HGB Conc 30.5 GM/DL (32-36); Mean Corpuscular Volume 95.3 FL (87-102); Mean Platelet Volume 12.1 FL (9.6-12.0); Monocytes % 3.5 % (1.7-12.7); NRBC # 0.12 10*3/uL; Neutrophils % 87.7 % (38.7-73.9); Platelet Count 144 T/CUMM (130-400); Red Blood Count 2.99 MC/CUMM (3.8-5.5); Red Cell Distribution Width 18.2 % (9.3-17.3); White Blood Count 16.4 T/CUMM (4-12)
[2020-12-17 05:28] LABS: Potassium 4.3 MMOL/L (3.5-5.1)
[2020-12-17] MEDS: INSULIN REGULAR 100 UNIT/ML SUBCUT SCH ×4 (08:12→21:24)
[2020-12-17] MEDS: DILTIAZEM 30 MG TABLET PO SCH ×3 (08:27→21:33)
[2020-12-17] MEDS: ISOSORBIDE MONONITRATE 30 MG TABLET PO SCH (08:27)
[2020-12-17] MEDS: GLIMEPIRIDE 2 MG TABLET PO SCH (08:28)
[2020-12-17] MEDS: metFORMIN 500 MG TABLET PO SCH ×2 (08:28→16:52)
[2020-12-17] MEDS: ASCORBIC ACID 500 MG TABLET PO SCH ×2 (08:28→21:33)
[2020-12-17] MEDS: ASPIRIN EC 81 MG TABLET PO SCH (08:28)
[2020-12-17] MEDS: FERROUS SULFATE 325 MG TABLET PO SCH (08:28)
[2020-12-17] MEDS: APIXABAN 5 MG TABLET PO SCH ×2 (08:29→21:33)
[2020-12-17] MEDS: DOCUSATE SODIUM 100 MG CAPSULE PO SCH (08:29)
[2020-12-17] MEDS: FUROSEMIDE 20 MG TABLET PO SCH (08:29)
[2020-12-17] MEDS: FINASTERIDE 5 MG TABLET PO SCH (08:29)
[2020-12-17] MEDS: OMEPRAZOLE ODT 20 MG TABLET PER TUBE SCH ×2 (08:30→21:33)
[2020-12-17] MEDS: POLYETHYLENE GLYCOL POWDER 17 GM PACK PO SCH ×2 (08:30→21:26)
[2020-12-17] MEDS: DIGOXIN 0.125 MG TABLET PO SCH (12:30)
[2020-12-18] MEDS: ALBUTEROL/IPRATROPIUM 3 ML NEB RESP TX SCH ×3 (00:51→13:33)
[2020-12-18 05:57] LABS: Basophils % 0.1 % (0.0-0.8); Eosinophils % 0.1 % (0.00-10.9); Hematocrit 29.5 VOL% (42.0-52.0); Hemoglobin 8.8 GM/DL (14.0-18.0); Immature Granulocytes % 0.8 %; Immature Granulocytes Absolute 0.12 #; Lymphocytes # 1.1 10*3/uL (1.4-4.0); Lymphocytes % 7.3 % (21.2-54.2); Mean Corpuscular HGB Conc 29.8 GM/DL (32-36); Mean Corpuscular Volume 94.9 FL (87-102); Mean Platelet Volume 11.4 FL (9.6-12.0); NRBC # 0.08 10*3/uL; Neutrophils % 87.7 % (38.7-73.9); Platelet Count 183 T/CUMM (130-400); Red Blood Count 3.11 MC/CUMM (3.8-5.5); Red Cell Distribution Width 18.1 % (9.3-17.3); White Blood Count 14.5 T/CUMM (4-12)
[2020-12-18 06:13] LABS: Albumin 2.6 G/DL (3.4-5.0); Bilirubin,Total 1.2 MG/DL (0.20-1.00); Calcium 8.5 MG/DL (8.5-10.1); Osmolality,Calculated 272.1 MOS/KG (273-304); Potassium 4.4 MMOL/L (3.5-5.1); Total Protein 7.5 G/DL (6.4-8.2)
[2020-12-18 06:14] LABS: Calcium 8.2 MG/DL (8.5-10.1); Osmolality,Calculated 268.4 MOS/KG (273-304); Potassium 4.5 MMOL/L (3.5-5.1)
[2020-12-18] MEDS: INSULIN REGULAR 100 UNIT/ML SUBCUT SCH ×2 (08:12→11:34)
[2020-12-18] MEDS ORDERED: DILTIAZEM CD 120 MG CAPSULE PO SCH (09:00)
[2020-12-18] MEDS: GLIMEPIRIDE 2 MG TABLET PO SCH (09:31)
[2020-12-18] MEDS: ASPIRIN EC 81 MG TABLET PO SCH (09:32)
[2020-12-18] MEDS: metFORMIN 500 MG TABLET PO SCH (09:32)
[2020-12-18] MEDS: APIXABAN 5 MG TABLET PO SCH (09:33)
[2020-12-18] MEDS: FERROUS SULFATE 325 MG TABLET PO SCH (09:33)
[2020-12-18] MEDS: ISOSORBIDE MONONITRATE 30 MG TABLET PO SCH (09:34)
[2020-12-18] MEDS: FUROSEMIDE 20 MG TABLET PO SCH (09:36)
[2020-12-18] MEDS: POLYETHYLENE GLYCOL POWDER 17 GM PACK PO SCH (09:36)
[2020-12-18] MEDS: FINASTERIDE 5 MG TABLET PO SCH (09:37)
[2020-12-18] MEDS: OMEPRAZOLE ODT 20 MG TABLET PER TUBE SCH (09:37)
[2020-12-18] MEDS: DOCUSATE SODIUM 100 MG CAPSULE PO SCH (09:37)
[2020-12-18] MEDS: ASCORBIC ACID 500 MG TABLET PO SCH (09:38)
[2020-12-18 11:35] VITALS: BP 110/76
== END 2020-12-18 13:50 | disposition home health service (06) | DRG 235 ==
LOC: N.TELEN 11:35 → N.CVR 12-06 12:06 → N.ICU 12-06 12:06 → N.TELES 12-13 10:42

== ENCOUNTER 2021-01-03 04:42 | Inpatient (IN) ==
[2021-01-03] MEDS ORDERED: PHENYLEPHRINE DRIP 40 MG/250 ML PREMIX IV ONE (05:25)
[2021-01-03] MEDS: PHENYLEPHRINE DRIP 40 MG/250 ML PREMIX IV PRN ×2 (05:29→19:36)
[2021-01-03 05:49] LABS: INR 1.1; PT Patient Result 12.5 SECS (10.5-12.0)
[2021-01-03 05:52] LABS: ABG Base Excess -2.7 MMOL/L (-2.5-2.5); ABG HCO3 26.3 MMOL/L (20-26); ABG Oxygen Saturation 90.4 % (95-100); ABG PO2 77.2 MM HG (80-95); ABG TCO2 28.6 MMOL/L (23-27)
[2021-01-03 05:54] LABS: ABG PCO2 74.1 MM HG (35-48); ABG PH 7.168 (7.35-7.45)
[2021-01-03] MEDS ORDERED: CLINDAMYCIN INJ 600 MG/50 ML PREMIX IV STA (06:21)
[2021-01-03] MEDS ORDERED: LEVOFLOXACIN INJ 750 MG in PREMIX 1 EACH IV STA (06:21)
[2021-01-03 06:25] LABS: Basophils # 0.1 10*3/uL (0.0-0.2); Basophils % 0.5 % (0.0-0.8); Eosinophils # 0.2 10*3/uL (0.0-0.87); Eosinophils % 1.2 % (0.00-10.9); Hematocrit 26.8 VOL% (42.0-52.0); Hemoglobin 7.8 GM/DL (14.0-18.0); Immature Granulocytes % 1.7 %; Immature Granulocytes Absolute 0.22 #; Lymphocytes # 4.3 10*3/uL (1.4-4.0); Lymphocytes % 33.5 % (21.2-54.2); Mean Corpuscular HGB Conc 29.1 GM/DL (32-36); Mean Corpuscular Volume 93.7 FL (87-102); Mean Platelet Volume 12.1 FL (9.6-12.0); Monocytes % 6.3 % (1.7-12.7); NRBC # 0.09 10*3/uL; Neutrophils % 56.8 % (38.7-73.9); Platelet Count 507 T/CUMM (130-400); Red Blood Count 2.86 MC/CUMM (3.8-5.5); Red Cell Distribution Width 18.9 % (9.3-17.3); White Blood Count 12.7 T/CUMM (4-12)
[2021-01-03] MEDS ORDERED: propofoL 200 MG/20 ML VIAL IV STA (06:28)
[2021-01-03 06:44] LABS: ABG Base Excess 1.2 MMOL/L (-2.5-2.5); ABG HCO3 25.5 MMOL/L (20-26); ABG Oxygen Saturation 96.5 % (95-100); ABG PCO2 62.5 MM HG (35-48); ABG PH 7.274 (7.35-7.45); ABG TCO2 27.3 MMOL/L (23-27)
[2021-01-03 06:50] LABS: Alanine Aminotransferase 50 U/L (16-61); Albumin 2.3 G/DL (3.4-5.0); Alkaline Phosphatase 107 U/L (45-117); Aspartate Amino Transferase 50 U/L (0-37); Blood Urea Nitrogen 18 MG/DL (7-18); Carbon Dioxide 24 MMOL/L (21-32); Estimated Glom Filtration Rate 72 ML/MIN; Glucose 396 MG/DL (74-106); Osmolality,Calculated 293.7 MOS/KG (273-304); Potassium 4.2 MMOL/L (3.5-5.1); Sodium 138 MMOL/L (136-145)
[2021-01-03] MEDS ORDERED: INSULIN LISPRO 100 UNIT/ML SUBCUT STA (07:10)
[2021-01-03] MEDS ORDERED: ONDANSETRON 4 MG/2 ML VIAL IV PRN (08:24)
[2021-01-03] MEDS ORDERED: ACETAMINOPHEN 325 MG TABLET PO PRN (08:24)
[2021-01-03] MEDS ORDERED: ALBUTEROL/IPRATROPIUM 3 ML NEB RESP TX PRN (08:24)
[2021-01-03] MEDS ORDERED: ENOXAPARIN 40 MG/0.4 ML SYRINGE SUBCUT SCH (08:30)
[2021-01-03] MEDS ORDERED: ASPIRIN EC 81 MG TABLET PO SCH (09:00)
[2021-01-03] MEDS ORDERED: DILTIAZEM CD 120 MG CAPSULE PO SCH (09:00)
[2021-01-03] MEDS ORDERED: DOCUSATE SODIUM 100 MG CAPSULE PO SCH (09:00)
[2021-01-03 10:48] LABS: ABG Base Excess 7.3 MMOL/L (-2.5-2.5); ABG HCO3 31.1 MMOL/L (20-26); ABG PCO2 55.7 MM HG (35-48); ABG PH 7.388 (7.35-7.45); ABG TCO2 31.3 MMOL/L (23-27)
[2021-01-03] MEDS: PANTOPRAZOLE 40 MG VIAL IV SCH (11:45)
[2021-01-03] MEDS: FUROSEMIDE 40 MG/4 ML VIAL IV SCH ×2 (11:45→17:00)
[2021-01-03] MEDS: FERROUS SULFATE 325 MG TABLET PO SCH (11:50)
[2021-01-03] MEDS: ATORVASTATIN 80 MG TABLET PO SCH (11:50)
[2021-01-03] MEDS: ASCORBIC ACID 500 MG TABLET PO SCH ×2 (11:50→21:01)
[2021-01-03] MEDS: APIXABAN 5 MG TABLET PO SCH ×2 (11:50→21:01)
[2021-01-03] MEDS: ASPIRIN CHEW 81 MG TABLET PO SCH (11:50)
[2021-01-03] MEDS: ISOSORBIDE MONONITRATE 30 MG TABLET PO SCH (11:50)
[2021-01-03] MEDS: FINASTERIDE 5 MG TABLET PO SCH (11:50)
[2021-01-03] MEDS: DOCUSATE SODIUM 100 MG/10 ML UDCUP NG SCH (11:50)
[2021-01-03] MEDS: LEVOFLOXACIN INJ 500 MG/100 ML PREMIX IV SCH (12:00)
[2021-01-03] MEDS: DIGOXIN 0.125 MG TABLET PO SCH (14:40)
[2021-01-03] MEDS: CLINDAMYCIN INJ 300 MG/50 ML PREMIX IV SCH ×2 (14:40→21:01)
[2021-01-03] MEDS ORDERED: INFLUENZA VIRUS VACCINE 0.5 ML SYRINGE IM ONE (15:01)
[2021-01-03] MEDS ORDERED: ETOMIDATE 20 MG/10 ML VIAL IV ONE (21:34)
[2021-01-03] MEDS ORDERED: ROCURONIUM 100 MG/10 ML VIAL IV ONE (21:34)
[2021-01-04] MEDS: CLINDAMYCIN INJ 300 MG/50 ML PREMIX IV SCH ×4 (02:16→20:31)
[2021-01-04 03:09] LABS: ABG Base Excess 9.6 MMOL/L (-2.5-2.5); ABG HCO3 33.3 MMOL/L (20-26); ABG Oxygen Saturation 99.7 % (95-100); ABG PCO2 47.7 MM HG (35-48); ABG PH 7.466 (7.35-7.45); ABG TCO2 32.2 MMOL/L (23-27)
[2021-01-04 04:20] LABS: Basophils % 0.2 % (0.0-0.8); Eosinophils % 0.1 % (0.00-10.9); Hematocrit 25.7 VOL% (42.0-52.0); Hemoglobin 7.6 GM/DL (14.0-18.0); Immature Granulocytes % 0.8 %; Immature Granulocytes Absolute 0.08 #; Lymphocytes # 1.4 10*3/uL (1.4-4.0); Lymphocytes % 14.5 % (21.2-54.2); Mean Corpuscular HGB Conc 29.6 GM/DL (32-36); Mean Corpuscular Volume 88.6 FL (87-102); Mean Platelet Volume 10.7 FL (9.6-12.0); Monocytes % 8.7 % (1.7-12.7); NRBC # 0.06 10*3/uL; Neutrophils % 75.7 % (38.7-73.9); Platelet Count 500 T/CUMM (130-400); Red Cell Distribution Width 18.4 % (9.3-17.3); White Blood Count 9.8 T/CUMM (4-12)
[2021-01-04 04:30] LABS: INR 1.1; PT Patient Result 12.7 SECS (10.5-12.0)
[2021-01-04 04:52] LABS: Albumin 2.5 G/DL (3.4-5.0); Bilirubin,Total 0.7 MG/DL (0.20-1.00); Calcium 8.7 MG/DL (8.5-10.1); Potassium 4.1 MMOL/L (3.5-5.1); Thyroid Stimulating Hormone 1.9 uIU/ml (0.358-3.74)
[2021-01-04] MEDS: FUROSEMIDE 40 MG/4 ML VIAL IV SCH ×2 (08:25)
[2021-01-04] MEDS: ASPIRIN CHEW 81 MG TABLET PO SCH (08:30)
[2021-01-04] MEDS: FERROUS SULFATE 325 MG TABLET PO SCH (08:30)
[2021-01-04] MEDS: FINASTERIDE 5 MG TABLET PO SCH (08:30)
[2021-01-04] MEDS: APIXABAN 5 MG TABLET PO SCH ×2 (08:30→20:31)
[2021-01-04] MEDS: ISOSORBIDE MONONITRATE 30 MG TABLET PO SCH (08:30)
[2021-01-04] MEDS: ASCORBIC ACID 500 MG TABLET PO SCH ×2 (08:30→20:31)
[2021-01-04] MEDS: ATORVASTATIN 80 MG TABLET PO SCH (08:30)
[2021-01-04] MEDS: DOCUSATE SODIUM 100 MG/10 ML UDCUP NG SCH (08:30)
[2021-01-04] MEDS: PANTOPRAZOLE 40 MG VIAL IV SCH (08:30)
[2021-01-04 09:34] LABS: Bacteria,Urine Occasional /HPF (Few); Bilirubin,Urine Negative (Negative); Blood, Urine Small mg/dL (Negative); Glucose,Urine (UA) Negative (Negative); Ketones,Urine Negative (Negative); Mucus,Urine Occasional /LPF (Occasional); Nitrite,Urine Negative (Negative); Protein,Urine Negative; RBC,Urine 7 /HPF (0-4); Urine Appearance CLEAR (Clear); Urine Color Straw (Yellow); Urine Specific Gravity 1.005 (1.001-1.035); Urine Urobilinogen < 2.0 EU/DL (0.2-1.0)
[2021-01-04 10:12] LABS: % Iron Saturation 25.1 % (18-50)
[2021-01-04 10:33] LABS: Folate 13.52 NG/ML (5.38-24.0); Vitamin B12 > 2000 PG/ML (211-911)
[2021-01-04] MEDS: LEVOFLOXACIN INJ 500 MG/100 ML PREMIX IV SCH (12:10)
[2021-01-04] MEDS ORDERED: SODIUM CHLORIDE 0.9% 1,000 ML IV PRN (12:18)
[2021-01-04] MEDS: DIGOXIN 0.125 MG TABLET PO SCH (12:55)
[2021-01-04] MEDS: PHENYLEPHRINE DRIP 40 MG/250 ML PREMIX IV PRN (16:55)
[2021-01-05] MEDS: CLINDAMYCIN INJ 300 MG/50 ML PREMIX IV SCH ×4 (02:17→20:24)
[2021-01-05 04:50] LABS: Basophils % 0.3 % (0.0-0.8); Eosinophils # 0.1 10*3/uL (0.0-0.87); Eosinophils % 0.5 % (0.00-10.9); Hematocrit 29.1 VOL% (42.0-52.0); Hemoglobin 8.7 GM/DL (14.0-18.0); Immature Granulocytes % 0.7 %; Immature Granulocytes Absolute 0.07 #; Lymphocytes # 1.6 10*3/uL (1.4-4.0); Lymphocytes % 15.4 % (21.2-54.2); Mean Corpuscular HGB Conc 29.9 GM/DL (32-36); Mean Corpuscular Volume 89.8 FL (87-102); Mean Platelet Volume 10.5 FL (9.6-12.0); Monocytes % 10.2 % (1.7-12.7); NRBC # 0.09 10*3/uL; Neutrophils % 72.9 % (38.7-73.9); Platelet Count 497 T/CUMM (130-400); Red Blood Count 3.24 MC/CUMM (3.8-5.5); White Blood Count 10.5 T/CUMM (4-12)
[2021-01-05 05:32] LABS: Albumin 2.6 G/DL (3.4-5.0); Bilirubin,Total 0.8 MG/DL (0.20-1.00); Calcium 8.4 MG/DL (8.5-10.1); Osmolality,Calculated 275.8 MOS/KG (273-304); Potassium 4.1 MMOL/L (3.5-5.1); Total Protein 6.6 G/DL (6.4-8.2)
[2021-01-05] MEDS: FERROUS SULFATE 325 MG TABLET PO SCH (08:25)
[2021-01-05] MEDS: ASCORBIC ACID 500 MG TABLET PO SCH ×2 (08:25→20:24)
[2021-01-05] MEDS: ATORVASTATIN 80 MG TABLET PO SCH (08:25)
[2021-01-05] MEDS: APIXABAN 5 MG TABLET PO SCH ×2 (08:25→20:23)
[2021-01-05] MEDS: ASPIRIN CHEW 81 MG TABLET PO SCH (08:25)
[2021-01-05] MEDS: FUROSEMIDE 40 MG/4 ML VIAL IV SCH (08:25)
[2021-01-05] MEDS: PANTOPRAZOLE 40 MG VIAL IV SCH (08:25)
[2021-01-05] MEDS: DOCUSATE SODIUM 100 MG/10 ML UDCUP NG SCH (08:26)
[2021-01-05] MEDS: FINASTERIDE 5 MG TABLET PO SCH (08:26)
[2021-01-05] MEDS: ISOSORBIDE MONONITRATE 30 MG TABLET PO SCH (08:26)
[2021-01-05] MEDS: guaiFENesin 200 MG/10 ML UDCUP PO PRN (10:58)
[2021-01-05] MEDS: LEVOFLOXACIN INJ 500 MG/100 ML PREMIX IV SCH (11:01)
[2021-01-05] MEDS: DIGOXIN 0.125 MG TABLET PO SCH (13:35)
[2021-01-06] MEDS: CLINDAMYCIN INJ 300 MG/50 ML PREMIX IV SCH ×4 (02:17→21:04)
[2021-01-06 08:14] LABS: Basophils % 0.4 % (0.0-0.8); Eosinophils # 0.1 10*3/uL (0.0-0.87); Hematocrit 31.5 VOL% (42.0-52.0); Hemoglobin 9.3 GM/DL (14.0-18.0); Immature Granulocytes % 0.7 %; Immature Granulocytes Absolute 0.07 #; Lymphocytes # 1.4 10*3/uL (1.4-4.0); Lymphocytes % 14.1 % (21.2-54.2); Mean Corpuscular HGB Conc 29.5 GM/DL (32-36); Mean Corpuscular Volume 91.3 FL (87-102); Monocytes % 7.9 % (1.7-12.7); NRBC # 0.04 10*3/uL; Neutrophils % 75.9 % (38.7-73.9); Platelet Count 527 T/CUMM (130-400); Red Blood Count 3.45 MC/CUMM (3.8-5.5); Red Cell Distribution Width 18.4 % (9.3-17.3); White Blood Count 9.7 T/CUMM (4-12)
[2021-01-06 08:24] LABS: Anisocytosis 2+; Calcium 9.1 MG/DL (8.5-10.1); Giant Platelets Few; Hypochromasia 1+; Macrocytosis 1+; Osmolality,Calculated 280.5 MOS/KG (273-304); Platelet Estimate Increased; Polychromasia Slight; Potassium 3.9 MMOL/L (3.5-5.1)
[2021-01-06] MEDS: FUROSEMIDE 40 MG/4 ML VIAL IV SCH (09:09)
[2021-01-06] MEDS: PANTOPRAZOLE 40 MG VIAL IV SCH (09:09)
[2021-01-06] MEDS: FINASTERIDE 5 MG TABLET PO SCH (09:11)
[2021-01-06] MEDS: DOCUSATE SODIUM 100 MG/10 ML UDCUP NG SCH (09:11)
[2021-01-06] MEDS: guaiFENesin 200 MG/10 ML UDCUP PO PRN (09:11)
[2021-01-06] MEDS: FERROUS SULFATE 325 MG TABLET PO SCH (09:11)
[2021-01-06] MEDS: POTASSIUM CHLORIDE 20 MEQ TABLET PO PRN (09:11)
[2021-01-06] MEDS: ASCORBIC ACID 500 MG TABLET PO SCH ×2 (09:11→21:03)
[2021-01-06] MEDS: ASPIRIN CHEW 81 MG TABLET PO SCH (09:11)
[2021-01-06] MEDS: ATORVASTATIN 80 MG TABLET PO SCH ×2 (09:12→13:25)
[2021-01-06] MEDS: ISOSORBIDE MONONITRATE 30 MG TABLET PO SCH (09:12)
[2021-01-06] MEDS: APIXABAN 5 MG TABLET PO SCH ×2 (09:12→21:03)
[2021-01-06] MEDS: METOPROLOL TARTRATE 25 MG TABLET PO SCH ×2 (11:05→21:04)
[2021-01-06] MEDS: LEVOFLOXACIN INJ 500 MG/100 ML PREMIX IV SCH (11:09)
[2021-01-06] MEDS: DIGOXIN 0.125 MG TABLET PO SCH (13:25)
[2021-01-06] MEDS: INSULIN GLARGINE 100 UNIT/ML SUBCUT SCH (21:04)
[2021-01-07] MEDS: CLINDAMYCIN INJ 300 MG/50 ML PREMIX IV SCH ×3 (04:03→18:58)
[2021-01-07 04:39] LABS: Basophils % 0.3 % (0.0-0.8); Eosinophils # 0.1 10*3/uL (0.0-0.87); Eosinophils % 1.5 % (0.00-10.9); Hematocrit 30.3 VOL% (42.0-52.0); Hemoglobin 8.9 GM/DL (14.0-18.0); Immature Granulocytes % 0.6 %; Immature Granulocytes Absolute 0.05 #; Lymphocytes # 1.4 10*3/uL (1.4-4.0); Lymphocytes % 16.1 % (21.2-54.2); Mean Corpuscular HGB Conc 29.4 GM/DL (32-36); Mean Corpuscular Volume 91.8 FL (87-102); Mean Platelet Volume 11.4 FL (9.6-12.0); Monocytes % 8.7 % (1.7-12.7); NRBC # 0.02 10*3/uL; Neutrophils % 72.8 % (38.7-73.9); Platelet Count 508 T/CUMM (130-400); Red Cell Distribution Width 18.6 % (9.3-17.3)
[2021-01-07 04:57] LABS: Calcium 8.7 MG/DL (8.5-10.1); Osmolality,Calculated 279.5 MOS/KG (273-304); Potassium 3.5 MMOL/L (3.5-5.1)
[2021-01-07] MEDS: POTASSIUM CHLORIDE 20 MEQ TABLET PO PRN (06:10)
[2021-01-07] MEDS ORDERED: DAPAGLIFLOZIN 10 MG TABLET PO SCH (09:00)
[2021-01-07] MEDS ORDERED: POTASSIUM CHLORIDE 20 MEQ PACK PO ONE (09:06)
[2021-01-07] MEDS ORDERED: POTASSIUM CHLORIDE 20 MEQ TABLET PO ONE (09:10)
[2021-01-07] MEDS: FERROUS SULFATE 325 MG TABLET PO SCH (09:41)
[2021-01-07] MEDS: DOCUSATE SODIUM 100 MG/10 ML UDCUP NG SCH (09:41)
[2021-01-07] MEDS: guaiFENesin 200 MG/10 ML UDCUP PO PRN (09:41)
[2021-01-07] MEDS: AMIODARONE 200 MG TABLET PO SCH ×2 (09:41→21:04)
[2021-01-07] MEDS: FUROSEMIDE 40 MG/4 ML VIAL IV SCH (09:41)
[2021-01-07] MEDS: ATORVASTATIN 80 MG TABLET PO SCH (09:41)
[2021-01-07] MEDS: PANTOPRAZOLE 40 MG VIAL IV SCH (09:41)
[2021-01-07] MEDS: FINASTERIDE 5 MG TABLET PO SCH (09:41)
[2021-01-07] MEDS: APIXABAN 5 MG TABLET PO SCH ×2 (09:41→21:03)
[2021-01-07] MEDS: ASPIRIN CHEW 81 MG TABLET PO SCH (09:42)
[2021-01-07] MEDS: ASCORBIC ACID 500 MG TABLET PO SCH ×2 (09:42→21:03)
[2021-01-07] MEDS: METOPROLOL TARTRATE 25 MG TABLET PO SCH ×3 (09:52→21:04)
[2021-01-07] MEDS: ALBUTEROL/IPRATROPIUM 3 ML NEB RESP TX SCH ×3 (10:19→20:23)
[2021-01-07] MEDS: DIGOXIN 0.125 MG TABLET PO SCH (12:07)
[2021-01-07] MEDS: INSULIN GLARGINE 100 UNIT/ML SUBCUT SCH (21:04)
[2021-01-08] MEDS: ALBUTEROL/IPRATROPIUM 3 ML NEB RESP TX SCH ×4 (00:26→18:18)
[2021-01-08] MEDS: CLINDAMYCIN INJ 300 MG/50 ML PREMIX IV SCH ×4 (00:57→17:36)
[2021-01-08 06:30] LABS: Basophils % 0.2 % (0.0-0.8); Eosinophils # 0.1 10*3/uL (0.0-0.87); Eosinophils % 1.3 % (0.00-10.9); Hematocrit 33.1 VOL% (42.0-52.0); Hemoglobin 9.8 GM/DL (14.0-18.0); Immature Granulocytes % 0.8 %; Immature Granulocytes Absolute 0.07 #; Lymphocytes # 1.5 10*3/uL (1.4-4.0); Lymphocytes % 17.8 % (21.2-54.2); Mean Corpuscular HGB Conc 29.6 GM/DL (32-36); Mean Corpuscular Volume 91.7 FL (87-102); Mean Platelet Volume 11.3 FL (9.6-12.0); NRBC # 0.02 10*3/uL; Neutrophils % 70.9 % (38.7-73.9); Platelet Count 519 T/CUMM (130-400); Red Blood Count 3.61 MC/CUMM (3.8-5.5); Red Cell Distribution Width 18.8 % (9.3-17.3); White Blood Count 8.6 T/CUMM (4-12)
[2021-01-08 06:48] LABS: Calcium 8.9 MG/DL (8.5-10.1); Osmolality,Calculated 278.5 MOS/KG (273-304); Potassium 3.7 MMOL/L (3.5-5.1)
[2021-01-08] MEDS ORDERED: POTASSIUM CHLORIDE 20 MEQ PACK PO SCH (09:00)
[2021-01-08] MEDS: FINASTERIDE 5 MG TABLET PO SCH (09:38)
[2021-01-08] MEDS: ASCORBIC ACID 500 MG TABLET PO SCH ×2 (09:38→21:07)
[2021-01-08] MEDS: ASPIRIN CHEW 81 MG TABLET PO SCH (09:38)
[2021-01-08] MEDS: METOPROLOL TARTRATE 25 MG TABLET PO SCH ×2 (09:38→21:07)
[2021-01-08] MEDS: APIXABAN 5 MG TABLET PO SCH ×2 (09:39→21:08)
[2021-01-08] MEDS: AMIODARONE 200 MG TABLET PO SCH ×2 (09:39→21:08)
[2021-01-08] MEDS: ATORVASTATIN 80 MG TABLET PO SCH (09:39)
[2021-01-08] MEDS: POTASSIUM CHLORIDE 20 MEQ TABLET PO SCH (09:39)
[2021-01-08] MEDS: FERROUS SULFATE 325 MG TABLET PO SCH (09:39)
[2021-01-08] MEDS: FUROSEMIDE 40 MG/4 ML VIAL IV SCH (09:43)
[2021-01-08] MEDS: DOCUSATE SODIUM 100 MG/10 ML UDCUP NG SCH (09:45)
[2021-01-08] MEDS: PANTOPRAZOLE 40 MG VIAL IV SCH (09:45)
[2021-01-08] MEDS: DIGOXIN 0.125 MG TABLET PO SCH (13:26)
[2021-01-08] MEDS: INSULIN GLARGINE 100 UNIT/ML SUBCUT SCH (21:08)
[2021-01-09] MEDS: CLINDAMYCIN INJ 300 MG/50 ML PREMIX IV SCH ×3 (00:23→13:06)
[2021-01-09] MEDS: ALBUTEROL/IPRATROPIUM 3 ML NEB RESP TX SCH ×3 (00:42→12:40)
[2021-01-09 05:08] LABS: Basophils % 0.3 % (0.0-0.8); Eosinophils # 0.2 10*3/uL (0.0-0.87); Eosinophils % 1.7 % (0.00-10.9); Hematocrit 31.8 VOL% (42.0-52.0); Hemoglobin 9.3 GM/DL (14.0-18.0); Immature Granulocytes % 0.6 %; Immature Granulocytes Absolute 0.05 #; Lymphocytes # 1.6 10*3/uL (1.4-4.0); Lymphocytes % 17.9 % (21.2-54.2); Mean Corpuscular HGB Conc 29.2 GM/DL (32-36); Mean Corpuscular Volume 90.6 FL (87-102); Mean Platelet Volume 11.3 FL (9.6-12.0); Monocytes % 8.8 % (1.7-12.7); NRBC # 0.02 10*3/uL; Neutrophils % 70.7 % (38.7-73.9); Platelet Count 472 T/CUMM (130-400); Red Blood Count 3.51 MC/CUMM (3.8-5.5); Red Cell Distribution Width 19.2 % (9.3-17.3)
[2021-01-09 05:35] LABS: Calcium 8.8 MG/DL (8.5-10.1); Osmolality,Calculated 276.7 MOS/KG (273-304); Potassium 3.8 MMOL/L (3.5-5.1)
[2021-01-09] MEDS: ASPIRIN CHEW 81 MG TABLET PO SCH (09:11)
[2021-01-09] MEDS: ATORVASTATIN 80 MG TABLET PO SCH (09:11)
[2021-01-09] MEDS: METOPROLOL TARTRATE 25 MG TABLET PO SCH (09:12)
[2021-01-09] MEDS: AMIODARONE 200 MG TABLET PO SCH (09:12)
[2021-01-09] MEDS: FERROUS SULFATE 325 MG TABLET PO SCH (09:12)
[2021-01-09] MEDS: ASCORBIC ACID 500 MG TABLET PO SCH (09:12)
[2021-01-09] MEDS: APIXABAN 5 MG TABLET PO SCH (09:13)
[2021-01-09] MEDS: POTASSIUM CHLORIDE 20 MEQ TABLET PO SCH (09:15)
[2021-01-09] MEDS: FINASTERIDE 5 MG TABLET PO SCH (09:17)
[2021-01-09] MEDS: FUROSEMIDE 40 MG/4 ML VIAL IV SCH (09:19)
[2021-01-09] MEDS: DOCUSATE SODIUM 100 MG/10 ML UDCUP NG SCH (09:20)
[2021-01-09] MEDS: PANTOPRAZOLE 40 MG VIAL IV SCH (09:23)
[2021-01-09 11:43] VITALS: BP 115/66
[2021-01-09] MEDS: DIGOXIN 0.125 MG TABLET PO SCH (13:05)
== END 2021-01-09 14:36 | disposition home or self-care (01) | DRG 208 ==
LOC: EDBD → EDUNIT# → N.ED 04:42 → SUATTDRO 08:22 → N.EDINP 08:22 → N.ICU 08:42 → N.TELES 01-07 13:48
PROVIDERS: ADMIT Family Medicine; ATTEND Internal Medicine

== ENCOUNTER 2021-02-13 08:49 | Inpatient (IN) ==
[2021-02-13] MEDS ORDERED: FUROSEMIDE 100 MG/10 ML VIAL IV STA (09:14)
[2021-02-13 09:34] LABS: ABG Base Excess 1.7 MMOL/L (-2.5-2.5); ABG Oxygen Saturation 95.1 % (95-100); ABG PCO2 45.6 MM HG (35-48); ABG PH 7.391 (7.35-7.45); ABG PO2 78.1 MM HG (80-95); ABG TCO2 28.4 MMOL/L (23-27)
[2021-02-13 09:50] LABS: Albumin 3.7 G/DL (3.4-5.0); Bilirubin,Total 0.6 MG/DL (0.20-1.00); Calcium 9.3 MG/DL (8.5-10.1); Osmolality,Calculated 281.4 MOS/KG (273-304); Potassium 4.7 MMOL/L (3.5-5.1); Total Protein 7.9 G/DL (6.4-8.2)
[2021-02-13 10:00] LABS: Basophils % 0.4 % (0.0-0.8); Eosinophils # 0.1 10*3/uL (0.0-0.87); Eosinophils % 1.3 % (0.00-10.9); Hematocrit 39.3 VOL% (42.0-52.0); Immature Granulocytes % 0.4 %; Immature Granulocytes Absolute 0.04 #; Lymphocytes # 2.1 10*3/uL (1.4-4.0); Lymphocytes % 21.7 % (21.2-54.2); Mean Corpuscular Volume 89.3 FL (87-102); Mean Platelet Volume 13.4 FL (9.6-12.0); Monocytes % 4.7 % (1.7-12.7); Neutrophils % 71.5 % (38.7-73.9); Platelet Count 214 T/CUMM (130-400); Red Cell Distribution Width 18.1 % (9.3-17.3); White Blood Count 9.7 T/CUMM (4-12)
[2021-02-13 10:02] LABS: Hemoglobin 11.8 GM/DL (14.0-18.0)
[2021-02-13] MEDS ORDERED: FUROSEMIDE 40 MG/4 ML VIAL IV STA (10:50)
[2021-02-13] MEDS ORDERED: ONDANSETRON 4 MG/2 ML VIAL IV PRN (11:24)
[2021-02-13] MEDS ORDERED: GLUCAGON 1 MG VIAL IM PRN (11:24)
[2021-02-13] MEDS ORDERED: DOCUSATE SODIUM 100 MG CAPSULE PO PRN (11:24)
[2021-02-13] MEDS ORDERED: ZALEPLON 5 MG CAPSULE PO PRN (11:24)
[2021-02-13] MEDS ORDERED: DEXTROSE 50% 25 GM/50 ML SYRINGE IV PRN (11:32)
[2021-02-13] MEDS: INSULIN LISPRO 100 UNIT/ML SUBCUT SCH ×3 (12:30→21:01)
[2021-02-13] MEDS ORDERED: ALBUTEROL/IPRATROPIUM 3 ML NEB RESP TX PRN (12:31)
[2021-02-13] MEDS ORDERED: NON-FORMULARY MEDICATION (Omeprazole 20 mg Capsule,Delayed Release(Dr/Ec)) PO PRN (12:31)
[2021-02-13] MEDS ORDERED: oxyCODONE/ACETAMINOPHEN 5-325 MG TABLET PO PRN (12:31)
[2021-02-13] MEDS ORDERED: FUROSEMIDE 40 MG/4 ML VIAL IV SCH (16:00)
[2021-02-13] MEDS: FERROUS SULFATE 325 MG TABLET PO SCH (18:04)
[2021-02-13] MEDS: ATORVASTATIN 80 MG TABLET PO SCH (21:00)
[2021-02-13] MEDS: CALCIUM (CARBONATE)/VITAMIN D 600 MG-400 UNIT TABLET PO SCH (21:00)
[2021-02-13] MEDS ORDERED: SACUBITRIL/VALSARTAN 49-51 MG TABLET PO SCH (21:00)
[2021-02-13] MEDS: metFORMIN 850 MG TABLET PO SCH (21:00)
[2021-02-13] MEDS: ASCORBIC ACID 500 MG TABLET PO SCH (21:00)
[2021-02-13] MEDS: APIXABAN 5 MG TABLET PO SCH (21:01)
[2021-02-13] MEDS: ACETAMINOPHEN 325 MG TABLET PO PRN (21:03)
[2021-02-14 06:19] LABS: Basophils % 0.3 % (0.0-0.8); Eosinophils # 0.2 10*3/uL (0.0-0.87); Eosinophils % 2.6 % (0.00-10.9); Hematocrit 41.2 VOL% (42.0-52.0); Hemoglobin 12.5 GM/DL (14.0-18.0); Immature Granulocytes % 0.4 %; Immature Granulocytes Absolute 0.04 #; Lymphocytes # 2.2 10*3/uL (1.4-4.0); Lymphocytes % 23.1 % (21.2-54.2); Mean Corpuscular HGB Conc 30.3 GM/DL (32-36); Mean Corpuscular Volume 88.2 FL (87-102); Mean Platelet Volume 12.5 FL (9.6-12.0); Monocytes % 7.5 % (1.7-12.7); Neutrophils % 66.1 % (38.7-73.9); Platelet Count 239 T/CUMM (130-400); Red Blood Count 4.67 MC/CUMM (3.8-5.5); Red Cell Distribution Width 18.2 % (9.3-17.3); White Blood Count 9.3 T/CUMM (4-12)
[2021-02-14 06:47] LABS: Osmolality,Calculated 286.3 MOS/KG (273-304); Potassium 3.9 MMOL/L (3.5-5.1)
[2021-02-14] MEDS ORDERED: FUROSEMIDE 40 MG/4 ML VIAL IV SCH (09:00)
[2021-02-14] MEDS: INSULIN LISPRO 100 UNIT/ML SUBCUT SCH ×4 (09:00→20:52)
[2021-02-14] MEDS ORDERED: GLIMEPIRIDE 2 MG TABLET PO SCH (09:00)
[2021-02-14] MEDS ORDERED: METOPROLOL SUCCINATE XL 25 MG TABLET PO SCH (09:00)
[2021-02-14] MEDS: DAPAGLIFLOZIN 10 MG TABLET PO SCH (10:01)
[2021-02-14] MEDS: FERROUS SULFATE 325 MG TABLET PO SCH ×2 (10:01→16:40)
[2021-02-14] MEDS: METOPROLOL SUCCINATE XL 25 MG TABLET PO SCH (10:01)
[2021-02-14] MEDS: ASCORBIC ACID 500 MG TABLET PO SCH ×2 (10:01→20:52)
[2021-02-14] MEDS: CYANOCOBALAMIN 500 MCG TABLET PO SCH (10:01)
[2021-02-14] MEDS: ASPIRIN EC 81 MG TABLET PO SCH (10:01)
[2021-02-14] MEDS: CALCIUM (CARBONATE)/VITAMIN D 600 MG-400 UNIT TABLET PO SCH ×2 (10:02→20:51)
[2021-02-14] MEDS: metFORMIN 850 MG TABLET PO SCH ×2 (10:02→20:52)
[2021-02-14] MEDS: AMIODARONE 200 MG TABLET PO SCH (10:02)
[2021-02-14] MEDS: FINASTERIDE 5 MG TABLET PO SCH (10:03)
[2021-02-14] MEDS: PANTOPRAZOLE 40 MG TABLET PO SCH (10:03)
[2021-02-14] MEDS: CHOLECALCIFEROL 1,000 UNIT TABLET PO SCH (10:03)
[2021-02-14] MEDS: APIXABAN 5 MG TABLET PO SCH ×2 (10:03→20:51)
[2021-02-14] MEDS ORDERED: DIGOXIN 0.125 MG TABLET PO SCH (13:00)
[2021-02-14] MEDS: ATORVASTATIN 80 MG TABLET PO SCH (20:52)
[2021-02-14] MEDS: ACETAMINOPHEN 325 MG TABLET PO PRN (20:52)
[2021-02-15 06:13] LABS: Osmolality,Calculated 285.3 MOS/KG (273-304); Potassium 4.1 MMOL/L (3.5-5.1)
[2021-02-15 08:21] VITALS: BP 100/74
[2021-02-15] MEDS: INSULIN LISPRO 100 UNIT/ML SUBCUT SCH (10:20)
[2021-02-15] MEDS: FINASTERIDE 5 MG TABLET PO SCH (10:27)
[2021-02-15] MEDS: ASCORBIC ACID 500 MG TABLET PO SCH (10:27)
[2021-02-15] MEDS: CHOLECALCIFEROL 1,000 UNIT TABLET PO SCH (10:27)
[2021-02-15] MEDS: DAPAGLIFLOZIN 10 MG TABLET PO SCH (10:27)
[2021-02-15] MEDS: FERROUS SULFATE 325 MG TABLET PO SCH (10:27)
[2021-02-15] MEDS: CYANOCOBALAMIN 500 MCG TABLET PO SCH (10:27)
[2021-02-15] MEDS: PANTOPRAZOLE 40 MG TABLET PO SCH (10:28)
[2021-02-15] MEDS: AMIODARONE 200 MG TABLET PO SCH (10:28)
[2021-02-15] MEDS: APIXABAN 5 MG TABLET PO SCH (10:28)
[2021-02-15] MEDS: metFORMIN 850 MG TABLET PO SCH (10:28)
[2021-02-15] MEDS: METOPROLOL SUCCINATE XL 25 MG TABLET PO SCH (10:28)
[2021-02-15] MEDS: ASPIRIN EC 81 MG TABLET PO SCH (10:28)
[2021-02-15] MEDS: CALCIUM (CARBONATE)/VITAMIN D 600 MG-400 UNIT TABLET PO SCH (10:28)
== END 2021-02-15 11:05 | disposition home or self-care (01) | DRG 291 ==
LOC: EDBD → EDUNIT# → N.ED 08:49 → SUATTDRO 11:24 → N.TELEN 11:24
PROVIDERS: ADMIT Internal Medicine; ATTEND Emergency Medicine

== ENCOUNTER 2021-06-04 18:13 | Observation (INO) ==
[2021-06-04 19:01] LABS: Basophils # 0.1 10*3/uL (0.0-0.2); Basophils % 0.6 % (0.0-0.8); Eosinophils # 0.3 10*3/uL (0.0-0.87); Eosinophils % 3.5 % (0.00-10.9); Hematocrit 46.8 VOL% (42.0-52.0); Hemoglobin 14.5 GM/DL (14.0-18.0); Immature Granulocytes % 0.3 %; Immature Granulocytes Absolute 0.03 #; Lymphocytes # 2.2 10*3/uL (1.4-4.0); Lymphocytes % 25.8 % (21.2-54.2); Mean Corpuscular Volume 86.8 FL (87-102); Mean Platelet Volume 11.6 FL (9.6-12.0); Monocytes % 7.4 % (1.7-12.7); Neutrophils % 62.4 % (38.7-73.9); Platelet Count 268 T/CUMM (130-400); Red Blood Count 5.39 MC/CUMM (3.8-5.5); White Blood Count 8.7 T/CUMM (4-12)
[2021-06-04 19:21] LABS: Band Neutrophils 1 % (0-10); Eosinophils 4 % (0-10); Lymphocytes 26 % (20-55); Segmented Neutrophils 63 % (50-85); Total Cells Counted 100
[2021-06-04 19:21] LABS: Alanine Aminotransferase 28 U/L (16-61); Albumin 3.8 G/DL (3.4-5.0); Alkaline Phosphatase 70 U/L (45-117); Aspartate Amino Transferase 22 U/L (0-37); Bilirubin,Total < 0.39 MG/DL (0.20-1.00); Blood Urea Nitrogen 22 MG/DL (7-18); Calcium 9.4 MG/DL (8.5-10.1); Carbon Dioxide 30 MMOL/L (21-32); Estimated Glom Filtration Rate 58 ML/MIN; Glucose 85 MG/DL (74-106); Osmolality,Calculated 284.1 MOS/KG (273-304); Sodium 142 MMOL/L (136-145); Total Protein 8.8 G/DL (6.4-8.2)
[2021-06-04 19:22] LABS: Anisocytosis 1+; Atypical Lymphocytes Few; Hypochromia Slight; Macrocytosis Slight; Microcytosis 1+; Platelet Estimate Normal; Polychromasia Few; Target Cells Few
[2021-06-04] MEDS ORDERED: ASPIRIN 325 MG TABLET PO STA (19:30)
[2021-06-04] MEDS ORDERED: NITROGLYCERIN 2% OINT 1 INCH/GM PACK TOP STA (19:34)
[2021-06-04] MEDS ORDERED: ALUM/MAG/SIMETH/LIDO VISC 1:1 30 ML BOTTLE PO STA (19:34)
[2021-06-04 19:47] LABS: PT Patient Result 11.4 SECS (10.5-12.0); Partial Thromboplastin Time 27.7 SECS (23.8-32.1)
[2021-06-04] MEDS ORDERED: ACETAMINOPHEN 325 MG TABLET PO PRN (22:22)
[2021-06-04] MEDS ORDERED: ZALEPLON 5 MG CAPSULE PO PRN (22:22)
[2021-06-05] MEDS: NITROGLYCERIN 2% OINT 1 INCH/GM PACK TOP SCH ×4 (02:19→19:12)
[2021-06-05 05:30] LABS: Risk Ratio 4.17; VLDL Cholesterol 22.8 MG/DL
[2021-06-05 06:35] LABS: Basophils # 0.1 10*3/uL (0.0-0.2); Basophils % 0.7 % (0.0-0.8); Eosinophils # 0.3 10*3/uL (0.0-0.87); Eosinophils % 3.8 % (0.00-10.9); Hematocrit 44.7 VOL% (42.0-52.0); Hemoglobin 13.9 GM/DL (14.0-18.0); Immature Granulocytes % 0.3 %; Immature Granulocytes Absolute 0.03 #; Lymphocytes # 2.2 10*3/uL (1.4-4.0); Lymphocytes % 24.8 % (21.2-54.2); Mean Corpuscular HGB Conc 31.1 GM/DL (32-36); Mean Corpuscular Volume 86.8 FL (87-102); Mean Platelet Volume 11.6 FL (9.6-12.0); Monocytes % 7.7 % (1.7-12.7); Neutrophils % 62.7 % (38.7-73.9); Platelet Count 251 T/CUMM (130-400); Red Blood Count 5.15 MC/CUMM (3.8-5.5); White Blood Count 8.7 T/CUMM (4-12)
[2021-06-05 06:46] LABS: Albumin 3.5 G/DL (3.4-5.0); Bilirubin,Total 1.2 MG/DL (0.20-1.00); Calcium 9.1 MG/DL (8.5-10.1); Osmolality,Calculated 280.4 MOS/KG (273-304)
[2021-06-05 07:20] LABS: Platelet Estimate Normal
[2021-06-05 07:21] LABS: Anisocytosis 1+; Macrocytosis Slight
[2021-06-05] MEDS ORDERED: PANTOPRAZOLE 40 MG TABLET PO SCH (09:00)
[2021-06-05] MEDS: PANTOPRAZOLE 40 MG TABLET PO SCH ×2 (09:56→20:46)
[2021-06-05] MEDS ORDERED: NITROGLYCERIN SL 0.4 MG TABLET SL PRN (10:20)
[2021-06-05] MEDS ORDERED: ALBUTEROL/IPRATROPIUM 3 ML NEB RESP TX PRN (11:34)
[2021-06-05] MEDS: AMIODARONE 200 MG TABLET PO SCH (11:58)
[2021-06-05] MEDS: FINASTERIDE 5 MG TABLET PO SCH (11:59)
[2021-06-05] MEDS: SACUBITRIL/VALSARTAN 49-51 MG TABLET PO SCH ×2 (11:59→20:45)
[2021-06-05] MEDS: ATORVASTATIN 80 MG TABLET PO SCH (11:59)
[2021-06-05] MEDS: SUCRALFATE 1 GM/10 ML UDCUP PO SCH ×3 (11:59→20:45)
[2021-06-05] MEDS: FUROSEMIDE 20 MG TABLET PO SCH (11:59)
[2021-06-05] MEDS: DAPAGLIFLOZIN 10 MG TABLET PO SCH (11:59)
[2021-06-05] MEDS: ASPIRIN EC 81 MG TABLET PO SCH (11:59)
[2021-06-05] MEDS: METOPROLOL SUCCINATE XL 25 MG TABLET PO SCH (11:59)
[2021-06-05] MEDS: DIGOXIN 0.125 MG TABLET PO SCH (14:06)
[2021-06-05] MEDS: ASCORBIC ACID 500 MG TABLET PO SCH (20:46)
[2021-06-05] MEDS: EZETIMIBE 10 MG TABLET PO SCH (20:46)
[2021-06-05] MEDS: CALCIUM (CARBONATE)/VITAMIN D 600 MG-400 UNIT TABLET PO SCH (20:46)
[2021-06-06] MEDS: NITROGLYCERIN 2% OINT 1 INCH/GM PACK TOP SCH ×5 (00:10→23:20)
[2021-06-06 05:03] LABS: Basophils % 0.5 % (0.0-0.8); Eosinophils # 0.3 10*3/uL (0.0-0.87); Eosinophils % 3.7 % (0.00-10.9); Hemoglobin 14.4 GM/DL (14.0-18.0); Immature Granulocytes % 0.3 %; Immature Granulocytes Absolute 0.02 #; Lymphocytes # 1.9 10*3/uL (1.4-4.0); Lymphocytes % 26.3 % (21.2-54.2); Mean Corpuscular HGB Conc 30.6 GM/DL (32-36); Mean Platelet Volume 11.5 FL (9.6-12.0); Monocytes % 7.3 % (1.7-12.7); Neutrophils % 61.9 % (38.7-73.9); Platelet Count 242 T/CUMM (130-400); Red Cell Distribution Width 19.7 % (9.3-17.3); White Blood Count 7.3 T/CUMM (4-12)
[2021-06-06 05:17] LABS: Albumin 3.3 G/DL (3.4-5.0); Bilirubin,Total 0.6 MG/DL (0.20-1.00); Potassium 4.7 MMOL/L (3.5-5.1); Total Protein 7.8 G/DL (6.4-8.2)
[2021-06-06] MEDS ORDERED: DIAZEPAM 5 MG TABLET PO ONE (07:52)
[2021-06-06] MEDS ORDERED: diphenhydrAMINE CAP 50 MG CAPSULE PO ONE (07:52)
[2021-06-06] MEDS ORDERED: POTASSIUM CHLORIDE RIDER 10 MEQ/100 ML PREMIX IV PRN (07:52)
[2021-06-06] MEDS ORDERED: MAGNESIUM SULF RIDER 2 GM/50 ML PREMIX IV PRN (07:52)
[2021-06-06] MEDS: SUCRALFATE 1 GM/10 ML UDCUP PO SCH ×4 (09:15→21:48)
[2021-06-06] MEDS: CALCIUM (CARBONATE)/VITAMIN D 600 MG-400 UNIT TABLET PO SCH ×2 (09:15→21:57)
[2021-06-06] MEDS: PANTOPRAZOLE 40 MG TABLET PO SCH (09:16)
[2021-06-06] MEDS: DAPAGLIFLOZIN 10 MG TABLET PO SCH (09:16)
[2021-06-06] MEDS: FERROUS SULFATE 325 MG TABLET PO SCH (09:16)
[2021-06-06] MEDS: METOPROLOL SUCCINATE XL 25 MG TABLET PO SCH (09:16)
[2021-06-06] MEDS: ATORVASTATIN 80 MG TABLET PO SCH (09:16)
[2021-06-06] MEDS: ASPIRIN EC 81 MG TABLET PO SCH (09:16)
[2021-06-06] MEDS: ASCORBIC ACID 500 MG TABLET PO SCH ×2 (09:17→21:49)
[2021-06-06] MEDS: FINASTERIDE 5 MG TABLET PO SCH (09:17)
[2021-06-06] MEDS: CYANOCOBALAMIN 500 MCG TABLET PO SCH (09:17)
[2021-06-06] MEDS: AMIODARONE 200 MG TABLET PO SCH (09:17)
[2021-06-06] MEDS: SACUBITRIL/VALSARTAN 49-51 MG TABLET PO SCH ×2 (09:17→21:51)
[2021-06-06] MEDS: FUROSEMIDE 20 MG TABLET PO SCH (09:18)
[2021-06-06] MEDS: CHOLECALCIFEROL 1,000 UNIT TABLET PO SCH (09:18)
[2021-06-06] MEDS: DIGOXIN 0.125 MG TABLET PO SCH (12:39)
[2021-06-06] MEDS ORDERED: HEPARIN/NACL 0.9% 2 UNITS/ML 2,000 UNIT/1,000 ML BAG IV ONE (14:06)
[2021-06-06] MEDS ORDERED: LIDOCAINE 1%/EPI INJ 20 ML VIAL ONE (14:06)
[2021-06-06] MEDS ORDERED: MIDAZOLAM 2 MG/2 ML VIAL ONE (14:20)
[2021-06-06] MEDS ORDERED: fentaNYL 100 MCG/2 ML VIAL ONE (14:20)
[2021-06-06] MEDS ORDERED: NOREPINEPHRINE 4 MG/4 ML VIAL IV ONE (14:50)
[2021-06-06] MEDS ORDERED: ENOXAPARIN 60 MG/0.6 ML SYRINGE ONE (15:23)
[2021-06-06] MEDS ORDERED: TIROFIBAN 5,000 MCG/100 ML PREMIX IV ONE (15:23)
[2021-06-06] MEDS ORDERED: CLOPIDOGREL 300 MG TABLET ONE (15:45)
[2021-06-06] MEDS ORDERED: ONDANSETRON 4 MG/2 ML VIAL IV PRN (16:25)
[2021-06-06] MEDS ORDERED: SODIUM CHLORIDE 0.9% 1,000 ML IV SCH (16:30)
[2021-06-06] MEDS: PANTOPRAZOLE 40 MG VIAL IV SCH (21:50)
[2021-06-06] MEDS: EZETIMIBE 10 MG TABLET PO SCH (21:50)
[2021-06-07 01:57] LABS: Basophils % 0.4 % (0.0-0.8); Eosinophils # 0.2 10*3/uL (0.0-0.87); Eosinophils % 2.7 % (0.00-10.9); Hematocrit 48.1 VOL% (42.0-52.0); Hemoglobin 15.3 GM/DL (14.0-18.0); Immature Granulocytes % 0.3 %; Immature Granulocytes Absolute 0.02 #; Lymphocytes # 1.6 10*3/uL (1.4-4.0); Lymphocytes % 21.1 % (21.2-54.2); Mean Corpuscular HGB Conc 31.8 GM/DL (32-36); Mean Corpuscular Volume 85.4 FL (87-102); Mean Platelet Volume 11.1 FL (9.6-12.0); Monocytes % 6.8 % (1.7-12.7); Neutrophils % 68.7 % (38.7-73.9); Platelet Count 257 T/CUMM (130-400); Red Blood Count 5.63 MC/CUMM (3.8-5.5); Red Cell Distribution Width 19.4 % (9.3-17.3); White Blood Count 7.8 T/CUMM (4-12)
[2021-06-07 02:03] LABS: Calcium 9.4 MG/DL (8.5-10.1); Osmolality,Calculated 276.8 MOS/KG (273-304); Potassium 4.2 MMOL/L (3.5-5.1)
[2021-06-07] MEDS: NITROGLYCERIN 2% OINT 1 INCH/GM PACK TOP SCH (05:55)
[2021-06-07] MEDS: SODIUM CHLORIDE 0.9% 1,000 ML IV SCH (08:42)
[2021-06-07] MEDS: SUCRALFATE 1 GM/10 ML UDCUP PO SCH ×4 (09:51→20:31)
[2021-06-07] MEDS: AMIODARONE 200 MG TABLET PO SCH (09:52)
[2021-06-07] MEDS: ATORVASTATIN 80 MG TABLET PO SCH (09:52)
[2021-06-07] MEDS: FINASTERIDE 5 MG TABLET PO SCH (09:52)
[2021-06-07] MEDS: CLOPIDOGREL 75 MG TABLET PO SCH (09:52)
[2021-06-07] MEDS: CALCIUM (CARBONATE)/VITAMIN D 600 MG-400 UNIT TABLET PO SCH ×2 (09:52→20:31)
[2021-06-07] MEDS: CHOLECALCIFEROL 1,000 UNIT TABLET PO SCH (09:53)
[2021-06-07] MEDS: CYANOCOBALAMIN 500 MCG TABLET PO SCH (09:53)
[2021-06-07] MEDS: ASCORBIC ACID 500 MG TABLET PO SCH ×2 (09:53→20:31)
[2021-06-07] MEDS: PANTOPRAZOLE 40 MG VIAL IV SCH ×2 (09:54→20:35)
[2021-06-07] MEDS: FERROUS SULFATE 325 MG TABLET PO SCH (09:54)
[2021-06-07] MEDS: METOPROLOL SUCCINATE XL 25 MG TABLET PO SCH (09:55)
[2021-06-07] MEDS: FUROSEMIDE 20 MG TABLET PO SCH (10:35)
[2021-06-07] MEDS: DAPAGLIFLOZIN 10 MG TABLET PO SCH (10:35)
[2021-06-07] MEDS: ASPIRIN EC 81 MG TABLET PO SCH (10:36)
[2021-06-07] MEDS: RANOLAZINE 500 MG TABLET PO SCH ×2 (12:55→20:31)
[2021-06-07] MEDS: DIGOXIN 0.125 MG TABLET PO SCH (15:19)
[2021-06-07] MEDS: EZETIMIBE 10 MG TABLET PO SCH (20:31)
[2021-06-07] MEDS: APIXABAN 5 MG TABLET PO SCH (20:31)
[2021-06-08] MEDS: SODIUM CHLORIDE 0.9% 1,000 ML IV SCH (05:38)
[2021-06-08 06:04] LABS: Albumin 2.9 G/DL (3.4-5.0); Bilirubin,Total 0.7 MG/DL (0.20-1.00); Calcium 8.4 MG/DL (8.5-10.1); Osmolality,Calculated 277.8 MOS/KG (273-304); Potassium 4.5 MMOL/L (3.5-5.1); Total Protein 7.3 G/DL (6.4-8.2)
[2021-06-08] MEDS: SUCRALFATE 1 GM/10 ML UDCUP PO SCH ×2 (07:36→13:27)
[2021-06-08 08:10] VITALS: BP 116/69
[2021-06-08] MEDS: ATORVASTATIN 80 MG TABLET PO SCH (09:15)
[2021-06-08] MEDS: FERROUS SULFATE 325 MG TABLET PO SCH (09:15)
[2021-06-08] MEDS: APIXABAN 5 MG TABLET PO SCH (09:15)
[2021-06-08] MEDS: CLOPIDOGREL 75 MG TABLET PO SCH (09:15)
[2021-06-08] MEDS: CHOLECALCIFEROL 1,000 UNIT TABLET PO SCH (09:15)
[2021-06-08] MEDS: ASCORBIC ACID 500 MG TABLET PO SCH (09:15)
[2021-06-08] MEDS: CYANOCOBALAMIN 500 MCG TABLET PO SCH (09:15)
[2021-06-08] MEDS: AMIODARONE 200 MG TABLET PO SCH (09:16)
[2021-06-08] MEDS: METOPROLOL SUCCINATE XL 25 MG TABLET PO SCH (09:16)
[2021-06-08] MEDS: FINASTERIDE 5 MG TABLET PO SCH (09:16)
[2021-06-08] MEDS: RANOLAZINE 500 MG TABLET PO SCH (09:16)
[2021-06-08] MEDS: CALCIUM (CARBONATE)/VITAMIN D 600 MG-400 UNIT TABLET PO SCH (09:16)
[2021-06-08] MEDS: PANTOPRAZOLE 40 MG VIAL IV SCH (09:20)
[2021-06-08] MEDS: DIGOXIN 0.125 MG TABLET PO SCH (13:27)
== END 2021-06-08 14:02 | disposition home or self-care (01) ==
LOC: N.ED 18:13 → N.EDINP 18:13 → N.TELEN 06-05 02:17
PROVIDERS: ADMIT Internal Medicine; ATTEND Internal Medicine